=== PATIENT | male | born 1945 | race Caucasian/White ===

== ENCOUNTER 2017-02-20 07:25 | Emergency (ER) | payer MEDICAID, MEDICARE, OTHER ==
[~2017-02-20] VITALS: Ht 180.3 cm; Wt 90.7 kg
[~2017-02-20 07:25] MED LIST: AMLODIPINE BESYL5 MG ORAL; ASPIRIN81 MG ORAL; ATORVASTATIN CA20 MG ORAL; BACTRIM DS TAB1 EAC1 ORAL; CARVEDILOL12.5 MG ORAL; CIPRO500 MG PO; CIPROFLOXACIN500 M2 ORAL; COLACE100 MG ORAL; COREG12.5 MG ORAL; COZAAR50 MG ORAL; DOCUSATE SODIU100 MG PO; FLEET ENEMA133 ML RC; FLEET ENEMA133 ML RECTAL; FLOMAX0.4 MG ORAL; FUROSEMIDE40 MG ORAL; KEFLEX500 MG ORAL; LANTUS SOL100 UNIT/1 SUBQ; LEVOTHYROXINE50 MCG ORAL; LOSARTAN POTASS25 MG ORAL; LOSARTAN POTASS50 MG ORAL; MAGNESIUM CITR296 M1 PO; NITROFURANTOIN100 M2 ORAL; NORCO 5-325 TA1 EACH ORAL; OMEPRAZOLE20 M3 ORAL; PHENAZOPYRIDIN100 MG ORAL; PLAVIX75 MG ORAL; QUETIAPINE FUMA25 MG PO
[2017-02-20 08:08] VITALS: BP 167/95
--- NOTE | 2017-02-20 08:19 | Emergency Room Report ---
History of Present Illness General Chief Complaint: Abnormal Labs Source: Patient, Friend Present Illness HPI 71-year-old M presents ED for evaluation. Per EMS patient living in a senior care and was found altered this morning. Accu-Chek was very low. Patient was given glucagon without significant improvement. Patient had IV placed and was started on D 10 solution. On arrival patient is more awake and alert and oriented. Patient notes history of diabetes states that he takes long-acting insulin once a day. States he missed his dinner last night. Denies any fevers or chills. Denies any drug use. No other aggravating relieving factors. Denies any other associated symptoms Allergies: Coded Allergies: No Known Allergies (Verified , 08/07/10) Patient History Past Medical History: DM, HTN, CVA/TIA Pertinent Family History: none Social History: Denies: alcohol use, drug use, smoking Immunizations: UTD Reviewed Nursing Documentation: PMH: Agreed, PSxH: Agreed Nursing Documentation-PMH Past Medical History: No History, Except For Hx Hypertension: Yes Hx Pacemaker: No Hx Asthma: No Hx COPD: No Hx Diabetes: Yes Hx Cancer: No Hx Gastrointestinal Problems: Yes Hx Dialysis: No Hx Cerebrovascular Accident: Yes - 2008 Hx Seizures: No Review of Systems All Other Systems: negative except mentioned in HPI Physical Exam Vital Signs Date Time Temp Pulse Resp B/P Pulse Ox O2 Delivery O2 Flow Rate FiO2 02/20/17 07:18 97.9 90 18 181/102 99 Room Air Sp02 EP Interpretation: reviewed, normal General Appearance: no apparent distress, alert, GCS 15, non-toxic, obese Head: normocephalic, atraumatic Eyes: bilateral eye PERRL, bilateral eye normal inspection ENT: hearing grossly normal, normal pharynx, no angioedema, normal voice Neck: full range of motion, supple/symm/no masses Respiratory: chest non-tender, lungs clear, normal breath sounds, speaking full sentences Cardiovascular #1: regular rate, rhythm, no edema Cardiovascular #2: 2+ carotid (R), 2+ carotid (L), 2+ radial (R), 2+ radial (L) , 2+ dorsalis pedis (R), 2+ dorsalis pedis (L) Gastrointestinal: normal bowel sounds, non tender, soft, non-distended, no guarding, no rebound Rectal: deferred Genitourinary: normal inspection, no CVA tenderness Musculoskeletal: back normal, gait/station normal, normal range of motion, non- tender Neurologic: alert, oriented x3, responsive, motor strength/tone normal, sensory intact, speech normal Psychiatric: judgement/insight normal, memory normal, mood/affect normal, no suicidal/homicidal ideation Reflexes: 3+ bicep (R), 3+ bicep (L), 3+ tricep (R), 3+ tricep (L), 3+ knee (R) , 3+ knee (L) Skin: normal color, no rash, warm/dry, well hydrated Lymphatic: no adenopathy Medical Decision Making Diagnostic Impression: Primary Impression: Hypoglycemia Additional Impressions: Altered level of consciousness Renal insufficiency Labs Test 02/20/17 08:10 02/20/17 08:26 White Blood Count 8.1 K/UL (4.8-10.8) Red Blood Count 3.48 M/UL (4.70-6.10) Hemoglobin 11.2 G/DL (14.2-18.0) Hematocrit 36.4 % (42.0-52.0) Mean Corpuscular Volume 105 FL (80-99) Mean Corpuscular Hemoglobin 32.4 PG (27.0-31.0) Mean Corpuscular Hemoglobin Concent 30.9 G/DL (32.0-36.0) Red Cell Distribution Width 13.8 % (11.6-14.8) Platelet Count 125 K/UL (150-450) Mean Platelet Volume 8.3 FL (6.5-10.1) Neutrophils (%) (Auto) % (45.0-75.0) Lymphocytes (%) (Auto) % (20.0-45.0) Monocytes (%) (Auto) % (1.0-10.0) Eosinophils (%) (Auto) % (0.0-3.0) Basophils (%) (Auto) % (0.0-2.0) Sodium Level 140 mEQ/L (135-145) Potassium Level 4.6 mEQ/L (3.4-4.9) Chloride Level 104 mEQ/L (98-107) Carbon Dioxide Level 24 mEQ/L (20-30) Anion Gap 12 (5-15) Blood Urea Nitrogen 41 mg/dL (7-23) Creatinine 2.7 mg/dL (0.7-1.2) Estimat Glomerular Filtration Rate 23.5 mL/min (>60) Glucose Level 203 mg/dL (74-106) Calcium Level 8.3 mg/dL (8.6-10.2) Total Bilirubin 0.4 mg/dL (0.0-1.2) Aspartate Amino Transf (AST/SGOT) 15 U/L (5-40) Alanine Aminotransferase (ALT/SGPT) 10 U/L (3-41) Alkaline Phosphatase 83 U/L (40-129) Total Creatine Kinase 131 U/L (38-174) Creatine Kinase MB 4.1 ng/mL (< 6.7) Creatine Kinase MB Relative Index 3.1 Troponin I < 0.30 ng/mL (<=0.30) Total Protein 7.0 g/dL (6.6-8.7) Albumin 3.5 g/dL (3.5-5.2) Globulin 3.5 g/dL Albumin/Globulin Ratio 1.0 (1.0-2.7) Urine Color Yellow Urine Appearance Clear Urine pH 5 (4.5-8.0) Urine Specific [place] 1.015 (1.005-1.035) Urine Protein 2+ (NEGATIVE) Urine Glucose (UA) Negative (NEGATIVE) Urine Ketones Negative (NEGATIVE) Urine Occult Blood Negative (NEGATIVE) Urine Nitrite Negative (NEGATIVE) Urine Bilirubin Negative (NEGATIVE) Urine Urobilinogen Normal MG/DL (0.0-1.0) Urine Leukocyte Esterase 1+ (NEGATIVE) Urine RBC 0-2 /HPF (0 - 0) Urine WBC 0-2 /HPF (0 - 0) Urine Squamous Epithelial Cells Occasional /LPF Urine Bacteria Few /HPF (NONE) Urine Opiates Screen Negative (NEGATIVE) Urine Barbiturates Screen Negative (NEGATIVE) Phencyclidine (PCP) Screen Negative (NEGATIVE) Urine Amphetamines Screen Negative (NEGATIVE) Urine Benzodiazepines Screen Negative (NEGATIVE) Urine Cocaine Screen Negative (NEGATIVE) Urine Marijuana (THC) Screen Negative (NEGATIVE) EKG Diagnostic Results Rate: normal Rhythm: NSR ST Segments: other - RBBB ASA given to the pt in ED: No Rhythm Strip Diag. Results EP Interpretation: yes Rhythm: NSR, no PVC's, no ectopy Last Vital Signs Date Time Temp Pulse Resp B/P Pulse Ox O2 Delivery O2 Flow Rate FiO2 02/20/17 08:08 97.9 98 23 167/95 94 Room Air Status: improved Disposition: XFER SHT-TRM HOSP Condition: Serious Referrals: [facility],REFERRING (PCP) KING ALFARO M.D. Feb 20, 2017 08:19
[2017-02-20 08:25] LABS: MEAN CORPUSCULAR HEMOGLOBIN 32.4 PG (27.0-31.0); MEAN CORPUSCULAR HGB CONC 30.9 G/DL (32.0-36.0); MEAN CORPUSCULAR VOLUME 105 FL (80-99); MEAN PLATELET VOLUME 8.3 FL (6.5-10.1); PLATELET COUNT 125 K/UL (150-450); RED BLOOD COUNT 3.48 M/UL (4.70-6.10); RED CELL DISTRIBUTION WIDTH 13.8 % (11.6-14.8); WHITE BLOOD COUNT 8.1 K/UL (4.8-10.8)
[2017-02-20 08:35] LABS: APPEARANCE,URINE CLEAR; KETONES,URINE NEGATIVE (NEGATIVE); LEUKOCYTE ESTERASE ,URINE 1+ (NEGATIVE); NITRITE,URINE NEGATIVE (NEGATIVE); PH,URINE 5 (4.5-8.0); PROTEIN,URINE 2+ (NEGATIVE); UROBILINOGEN,URINE NORMAL MG/DL (0.0-1.0)
[2017-02-20 08:42] LABS: BACTERIA,URINE FEW /HPF; RBC,URINE 0-2 /HPF (0 - 0); SQUAMOUS EPITHELIAL CELL,UR OCCASIONAL /LPF (NONE/OCC); WBC,URINE 0-2 /HPF (0 - 0)
[2017-02-20 08:48] LABS: TROPONIN I < 0.30 ng/mL (<=0.30)
[2017-02-20 08:51] LABS: CALCIUM 8.3 mg/dL (8.6-10.2); CREATININE 2.7 mg/dL (0.7-1.2); GLOMERULAR FILTRATION RATE 23.5 mL/min (>60); POTASSIUM 4.6 mEQ/L (3.4-4.9)
[2017-02-20 09:01] LABS: CKMB 4.1 ng/mL (< 6.7)
[2017-02-20 09:28] LABS: BAND NEUTROPHILS % (MANUAL) 0 % (0-8); BASOPHILS % (MANUAL) 0 % (0-2); EOSINOPHILS % (MANUAL) 0 % (0-3); HYPOCHROMASIA 1+; LYMPHOCYTES % (MANUAL) 9 % (20-45); MACROCYTES 1+; NEUTROPHILS % (MANUAL) 89 % (45-75); PLATELET ESTIMATE DECREASED; PLATELET MORPHOLOGY NORMAL; TOTAL CELLS COUNTED 100
[2017-02-20] MEDS ORDERED: LIPITOR80 MG ORAL (09:28)
[2017-02-20] MEDS ORDERED: OMEPRAZOLE20 M3 ORAL (09:31)
[2017-02-20] MEDS ORDERED: MIRTAZAPINE15 M3 ORAL (09:31)
[2017-02-20] MEDS ORDERED: TAMSULOSIN HCL0.4 MG ORAL (09:31)
[2017-02-20] MEDS ORDERED: CARVEDILOL6.25 MG ORAL (09:31)
[2017-02-20 10:11] VITALS: BP 163/86
[2017-02-20] MEDS ORDERED: LANTUS SOL100 UNIT/1 SUBQ (10:13)
[2017-02-20 10:59] VITALS: BP 154/78
== END 2017-02-20 11:00 | disposition short-term general hospital (02) ==
LOC: EDBD 07:25 → EMR 07:45
DX: E16.2 Hypoglycemia, unspecified (principal); R41.82 Altered mental status, unspecified; N28.9 Disorder of kidney and ureter, unspecified; E11.8 Type 2 diabetes mellitus with unspecified complications; Z79.4 Long term (current) use of insulin; I10 Essential (primary) hypertension; Z86.73 Personal history of transient ischemic attack (TIA), and cerebral infarction without residual deficits; I45.10 Unspecified right bundle-branch block
CPT/HCPCS: 36415; 80053; 80300; 81003; 82550; 82553; 82962; 84484; 85007; 85025; 87081; 93005

== ENCOUNTER 2017-02-21 11:53 | Emergency (ER) | payer MEDICAID, MEDICARE, OTHER ==
[~2017-02-21] VITALS: Ht 182.9 cm; Wt 99.8 kg
[~2017-02-21 11:53] MED LIST changes: +CARVEDILOL6.25 MG ORAL; +LIPITOR80 MG ORAL; +MIRTAZAPINE15 M3 ORAL; +TAMSULOSIN HCL0.4 MG ORAL
[2017-02-21 12:00] VITALS: BP 154/86
--- NOTE | 2017-02-21 12:57 | Emergency Room Report ---
History of Present Illness General Chief Complaint: Abdominal Pain Source: Patient, Medical Record Present Illness HPI 71-year-old male presents ED complaining of shortness of breath and abdominal pain. States symptoms started this morning. Patient notes pain to the lower abdomen, 7/10, sharp, nonradiating. Denies fevers or chills. Denies nausea or vomiting. Patient complains of shortness of breath and increased leg swelling. History of CHF. Denies chest pain. Denies cough. Patient was here yesterday for hypoglycemia and was transferred to another hospital. Patient states he was discharged this morning to home. States felt fine when he was discharged. No other aggravating or relieving factors. Denies any other associated symptom Allergies: Coded Allergies: No Known Allergies (Verified , 08/07/10) Patient History Past Medical History: DM, HTN, CVA/TIA Past Surgical History: none Pertinent Family History: none Social History: Denies: alcohol use, drug use, smoking Immunizations: UTD Reviewed Nursing Documentation: PMH: Agreed, PSxH: Agreed Nursing Documentation-PMH Past Medical History: No History, Except For Hx Hypertension: Yes Hx Pacemaker: No Hx Asthma: No Hx COPD: No Hx Diabetes: Yes Hx Cancer: No Hx Gastrointestinal Problems: Yes Hx Dialysis: No Hx Cerebrovascular Accident: Yes - 2008 Hx Seizures: No Review of Systems All Other Systems: negative except mentioned in HPI Physical Exam Vital Signs Date Time Temp Pulse Resp B/P Pulse Ox O2 Delivery O2 Flow Rate FiO2 02/21/17 11:40 98.8 88 20 152/87 96 Room Air Sp02 EP Interpretation: reviewed, normal General Appearance: mild distress, obese Head: normocephalic ENT: normal ENT inspection Neck: normal inspection Respiratory: chest non-tender, lungs clear, normal breath sounds, speaking full sentences Cardiovascular #1: regular rate, rhythm, no edema Gastrointestinal: tenderness Rectal: deferred Genitourinary: no CVA tenderness Musculoskeletal: swelling - 2+ pitting edema b/l LE Neurologic: alert, oriented x3, responsive, motor strength/tone normal, sensory intact, speech normal Psychiatric: normal inspection Skin: normal inspection Lymphatic: normal inspection Medical Decision Making Diagnostic Impression: Primary Impression: CHF exacerbation Qualified Codes: I50.9 - Heart failure, unspecified Additional Impressions: Abdominal pain Qualified Codes: R10.9 - Unspecified abdominal pain Renal insufficiency ER Course Hospital Course 71-year-old male presents ED complaining of shortness of breath, leg swelling. Abdominal pain Differential diagnoses include: ME/unstable angina, contusion, muscle strain, PTX, rib fracture Clinical course Patient placed on stretcher. on shelter monitor. After initial history and physical I ordered labs, EKG, chest x-ray, CT abdomen labs reviewed- no leukocytosis, hemoglobin/hematocrit stable, BUN/creatinine elevated, troponins negative, B[place] greater [place] [address] Chest x-ray- pulmonary congestion, cardiac megaly, sternotomy wires noted EKG-no acute ischemic changes, right bundle branch block interpreted by me CT abdomen shows diverticulosis, no diverticulitis, ascites Lasix given. On reassessment symptoms have improved Patient was here yesterday and seen by myself for hypoglycemia after taking Lantus. Patient was transferred to urgent care for observation and subsequently discharged this morning Because of insurance patient will be transferred to a contracted hospital I. I feel this is a highly complex case requiring extensive working including EKG/Rhythm strip, Xray/CT/US, Blood/urine lab work, repeat exams while in ED, and administration of strong opiates/narcotics for pain control, admission to hospital or close patient follow up. Diagnosis - CHF exacerbation, abdominal pain, renal insufficiency Transferred in serious condition Labs Test 02/21/17 12:25 02/21/17 14:30 White Blood Count 6.2 K/UL (4.8-10.8) Red Blood Count 3.41 M/UL (4.70-6.10) Hemoglobin 10.7 G/DL (14.2-18.0) Hematocrit 35.6 % (42.0-52.0) Mean Corpuscular Volume 104 FL (80-99) Mean Corpuscular Hemoglobin 31.2 PG (27.0-31.0) Mean Corpuscular Hemoglobin Concent 30.0 G/DL (32.0-36.0) Red Cell Distribution Width 14.1 % (11.6-14.8) Platelet Count 130 K/UL (150-450) Mean Platelet Volume 8.9 FL (6.5-10.1) Neutrophils (%) (Auto) 65.2 % (45.0-75.0) Lymphocytes (%) (Auto) 20.4 % (20.0-45.0) Monocytes (%) (Auto) 10.3 % (1.0-10.0) Eosinophils (%) (Auto) 2.9 % (0.0-3.0) Basophils (%) (Auto) 1.1 % (0.0-2.0) Sodium Level 139 mEQ/L (135-145) Potassium Level 5.0 mEQ/L (3.4-4.9) Chloride Level 104 mEQ/L (98-107) Carbon Dioxide Level 21 mEQ/L (20-30) Anion Gap 14 (5-15) Blood Urea Nitrogen 47 mg/dL (7-23) Creatinine 2.7 mg/dL (0.7-1.2) Estimat Glomerular Filtration Rate 23.5 mL/min (>60) Glucose Level 167 mg/dL (74-106) Calcium Level 8.4 mg/dL (8.6-10.2) Total Bilirubin 0.5 mg/dL (0.0-1.2) Aspartate Amino Transf (AST/SGOT) 21 U/L (5-40) Alanine Aminotransferase (ALT/SGPT) 14 U/L (3-41) Alkaline Phosphatase 80 U/L (40-129) Total Creatine Kinase 185 U/L (38-174) Creatine Kinase MB 3.1 ng/mL (< 6.7) Creatine Kinase MB Relative Index 1.6 Troponin I < 0.30 ng/mL (<=0.30) Pro-B-Type Natriuretic Peptide 90067 pg/mL (0-125) Total Protein 6.5 g/dL (6.6-8.7) Albumin 3.5 g/dL (3.5-5.2) Globulin 3.0 g/dL Albumin/Globulin Ratio 1.1 (1.0-2.7) Lipase 15 U/L (< 60) Urine Color Yellow Urine Appearance Clear Urine pH 5 (4.5-8.0) Urine Specific [place] 1.020 (1.005-1.035) Urine Protein 2+ (NEGATIVE) Urine Glucose (UA) Negative (NEGATIVE) Urine Ketones Negative (NEGATIVE) Urine Occult Blood 1+ (NEGATIVE) Urine Nitrite Negative (NEGATIVE) Urine Bilirubin Negative (NEGATIVE) Urine Urobilinogen Normal MG/DL (0.0-1.0) Urine Leukocyte Esterase 3+ (NEGATIVE) Urine RBC 2-4 /HPF (0 - 0) Urine WBC 5-10 /HPF (0 - 0) Urine Squamous Epithelial Cells Occasional /LPF Urine Transitional Epithelial Cells Few /LPF (NONE) Urine Bacteria None /HPF (NONE) EKG Diagnostic Results Rate: normal Rhythm: other - 1st degree av block ST Segments: no acute changes ASA given to the pt in ED: No Rhythm Strip Diag. Results EP Interpretation: yes Rhythm: NSR, no ectopy, other - PVCs Chest X-Ray Diagnostic Results Chest X-Ray Diagnostic Results : Chest X-Ray Ordered: Yes # of Views/Limited/Complete: 1 View Indication: Shortness of Breath EP Interpretation: Yes Interpretation: no pneumothorax, other - cardiomegaly. pulmonary congestion Impression: Other - acute chf Interpreting ER Provider: electronically signed by Minor Sun mD CT/MRI/US Diagnostic Results CT/MRI/US Diagnostic Results : Imaging Test Ordered: CT abdomen/pelvis Impression Mild ascites. Bilateral pleural effusion. Subcutaneous edema. Diverticulosis , no diverticulitis Last Vital Signs Date Time Temp Pulse Resp B/P Pulse Ox O2 Delivery O2 Flow Rate FiO2 02/21/17 12:00 22 154/86 98 Room Air 02/21/17 11:40 98.8 88 Status: improved Disposition: XFER SHT-TRM HOSP Condition: Serious Referrals: NOT CHOSEN [facility]/,REFERRING (PCP) MINOR SUN M.D. Feb 21, 2017 12:56
[2017-02-21 13:06] LABS: ALBUMIN/GLOBULIN RATIO 1.1 (1.0-2.7); CALCIUM 8.4 mg/dL (8.6-10.2); CREATININE 2.7 mg/dL (0.7-1.2); GLOMERULAR FILTRATION RATE 23.5 mL/min (>60); TOTAL PROTEIN 6.5 g/dL (6.6-8.7); TROPONIN I < 0.30 ng/mL (<=0.30)
[2017-02-21 13:11] LABS: BASOPHILS % (AUTO) 1.1 % (0.0-2.0); EOSINOPHILS % (AUTO) 2.9 % (0.0-3.0); LYMPHOCYTES % (AUTO) 20.4 % (20.0-45.0); MEAN CORPUSCULAR HEMOGLOBIN 31.2 PG (27.0-31.0); MEAN CORPUSCULAR VOLUME 104 FL (80-99); MEAN PLATELET VOLUME 8.9 FL (6.5-10.1); MONOCYTES % (AUTO) 10.3 % (1.0-10.0); NEUTROPHILS % (AUTO) 65.2 % (45.0-75.0); PLATELET COUNT 130 K/UL (150-450); RED BLOOD COUNT 3.41 M/UL (4.70-6.10); RED CELL DISTRIBUTION WIDTH 14.1 % (11.6-14.8); WHITE BLOOD COUNT 6.2 K/UL (4.8-10.8)
[2017-02-21 13:17] LABS: CKMB 3.1 ng/mL (< 6.7)
[2017-02-21 14:00] VITALS: BP 134/88
[2017-02-21 14:53] LABS: APPEARANCE,URINE CLEAR; KETONES,URINE NEGATIVE (NEGATIVE); LEUKOCYTE ESTERASE ,URINE 3+ (NEGATIVE); NITRITE,URINE NEGATIVE (NEGATIVE); PH,URINE 5 (4.5-8.0); PROTEIN,URINE 2+ (NEGATIVE); UROBILINOGEN,URINE NORMAL MG/DL (0.0-1.0)
[2017-02-21 15:21] LABS: SQUAMOUS EPITHELIAL CELL,UR OCCASIONAL /LPF (NONE/OCC); TRANSITIONAL EPI CELLS,URINE FEW /LPF
[2017-02-21 16:00] VITALS: BP 127/80
[2017-02-21 17:38] VITALS: BP 131/83
--- NOTE | 2017-02-22 09:48 | Diagnostic Imaging Report ---
Indications: Shortness of breath Technique: AP chest Findings: Comparison: None Suboptimal image quality limits evaluation. Inspiratory effort has decreased. Size of the cardiac silhouette has apparently increased. Pulmonary vascular redistribution, bilateral interstitial prominence suggested. No pleural abnormality evident. Sternal wires, aortic arch calcification and mild elongation again noted. IMPRESSION: Limited exam demonstrating findings suggestive of development of mild congestive heart failure. Some or all of these changes may be technically related, however. Upright PA and lateral chest radiographs with better inspiratory effort and optimal technique recommended for more complete evaluation. Stable chronic changes as described
--- NOTE | 2017-02-23 10:17 | Diagnostic Imaging Report ---
Indications: Abdominal pain Technique: Continuous helical CT imaging of the orbits was performed with automatic exposure control on a Siemens sensation [address] scanner. Axial and coronal images were reconstructed at 3 mm slice thickness. IV contrast administered due to elevated creatinine level. No oral contrast administered per requesting physician's order, despite no contraindications listed CTDI volume(s): 19 mGy Total DLP: 1104 mGy-cm Findings: Comparison: 03/24/2013 Lack of oral and IV contrast limits evaluation. Moderate fecal distention of rectum. Remainder of tract nondilated throughout. Left colonic diverticula. Mild stranding/fluid now adjacent to the descending/sigmoid colon junction. Mild ascites and mesenteric edema have developed. No obvious mural thickening, extraluminal gas or loculated fluid collections. Right kidney now diffusely atrophic. 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 Remainder visualized abdominopelvic anatomy demonstrates no other obvious acute abnormality. Small left pleural effusion has developed. Subsegmental atelectasis has developed in both lung bases. Diffuse body wall edema has developed. Severe degenerative changes again noted throughout lumbar, lower thoracic spine. IMPRESSION: Development of ascites, mesenteric and body wall edema, left pleural effusion, nonspecific, may represent anasarca Left colonic diverticulosis. Adjacent fluid and stranding likely represent ascites and mesenteric edema. Mild acute diverticulitis not entirely excludable. Interval atrophy of right kidney likely due to chronic renal artery stenosis Other stable chronic changes as described No other evidence of acute abdominopelvic disease, with limitation as described. Subtle but potentially significant abnormalities may be missed. Repeat CT scan with full oral and IV contrast preparation recommended for more complete evaluation, as clinically indicated This correlates with Dr. Pro's preliminary report.
== END 2017-02-21 17:38 | disposition short-term general hospital (02) ==
LOC: EDBD 11:53 → EMR 12:44
DX: I50.9 Heart failure, unspecified (principal); R10.9 Unspecified abdominal pain; N28.9 Disorder of kidney and ureter, unspecified; K57.30 Diverticulosis of large intestine without perforation or abscess without bleeding; I10 Essential (primary) hypertension; R18.8 Other ascites; E11.9 Type 2 diabetes mellitus without complications; J90 Pleural effusion, not elsewhere classified; Z86.73 Personal history of transient ischemic attack (TIA), and cerebral infarction without residual deficits
CPT/HCPCS: 36415; 71010; 74176; 80053; 81003; 82550; 82553; 83690; 83880; 84484; 85025; 93005; 96374; 99285; J1940

== ENCOUNTER 2017-03-23 20:03 | Inpatient (IN) | payer OTHER ==
[~2017-03-23] VITALS: Ht 172.7 cm; Wt 115.2 kg
--- NOTE | 2017-03-23 20:00 | Emergency Room Report ---
History of Present Illness General Source: Patient, EMS Present Illness HPI Patient 71-year-old male brought in by EMS after increased difficulty breathing. Patient had the acute onset of difficulty breathing was much associated chest tightness. Patient had prior history of cardiac disease. History is limited by patient's difficulty breathing and acuity. Patient was given nitroglycerin as well as aspirin by EMS. He was started on CPAP. Allergies: Coded Allergies: No Known Allergies (Verified , 08/07/10) Patient History Past Medical History: see triage record Reviewed Nursing Documentation: PMH: Agreed, PSxH: Agreed Review of Systems All Other Systems: negative except mentioned in HPI Physical Exam Sp02 EP Interpretation: reviewed, normal General Appearance: severe distress, obese Head: atraumatic ENT: normal ENT inspection, hearing grossly normal, normal voice Neck: normal inspection, full range of motion, supple, no bony tend Respiratory: normal inspection, no retraction, decreased breath sounds, wheezing Cardiovascular #1: regular rate, rhythm, edema Gastrointestinal: normal inspection, normal bowel sounds, non tender, soft, no guarding, no hernia Genitourinary: no CVA tenderness Musculoskeletal: normal inspection, back normal, normal range of motion Neurologic: normal inspection, alert Psychiatric: normal inspection, judgement/insight normal, mood/affect normal Skin: other - pedal edema Medical Decision Making Diagnostic Impression: Primary Impression: CHF exacerbation Additional Impressions: Chronic renal disease Hypoxia ER Course Presented for shortness of breath. Differential included but was not limited to anemia, pneumonia, pneumothorax, myocardial infarction, pericardial effusion , congestive heart failure, acidosis. Because of complexity of patient's case laboratory testing and imaging studies were ordered. I EKG interpreted by me showed atrial fibrillation with a rate of [address] or T wave changes repeat EKG was unchanged. Patient given IV Lasix as well as BiPAP. Laboratory studies are notable for elevated BNP as well as negative troponin. The patient was noted to have some elevation of his BUN/ creatinineA chest x-ray one view interpreted by me showed cardiomegaly with vascular congestion. Dr. Klaus Marquez was contacted for Dr. Wing for inpatient management Labs Test 03/23/17 20:00 White Blood Count 7.9 K/UL (4.8-10.8) Red Blood Count 3.26 M/UL (4.70-6.10) Hemoglobin 10.8 G/DL (14.2-18.0) Hematocrit 34.1 % (42.0-52.0) Mean Corpuscular Volume 105 FL (80-99) Mean Corpuscular Hemoglobin 33.2 PG (27.0-31.0) Mean Corpuscular Hemoglobin Concent 31.7 G/DL (32.0-36.0) Red Cell Distribution Width 15.7 % (11.6-14.8) Platelet Count 133 K/UL (150-450) Mean Platelet Volume 7.7 FL (6.5-10.1) Neutrophils (%) (Auto) 82.7 % (45.0-75.0) Lymphocytes (%) (Auto) 9.3 % (20.0-45.0) Monocytes (%) (Auto) 5.5 % (1.0-10.0) Eosinophils (%) (Auto) 1.7 % (0.0-3.0) Basophils (%) (Auto) 0.7 % (0.0-2.0) Prothrombin Time 11.3 SEC (9.30-11.50) Prothromb Time International Ratio 1.1 (0.9-1.1) Activated Partial Thromboplast Time 27 SEC (23-33) D-Dimer 8948 ng/mL (<500) Sodium Level 139 mEQ/L (135-145) Potassium Level 5.8 mEQ/L (3.4-4.9) Chloride Level 104 mEQ/L (98-107) Carbon Dioxide Level 19 mEQ/L (20-30) Anion Gap 16 (5-15) Blood Urea Nitrogen 50 mg/dL (7-23) Creatinine 2.5 mg/dL (0.7-1.2) Estimat Glomerular Filtration Rate 25.7 mL/min (>60) Glucose Level 168 mg/dL (74-106) Calcium Level 8.2 mg/dL (8.6-10.2) Total Bilirubin 0.9 mg/dL (0.0-1.2) Aspartate Amino Transf (AST/SGOT) 26 U/L (5-40) Alanine Aminotransferase (ALT/SGPT) 11 U/L (3-41) Alkaline Phosphatase 99 U/L (40-129) Troponin I < 0.30 ng/mL (<=0.30) Pro-B-Type Natriuretic Peptide 68567 pg/mL (0-125) Total Protein 7.2 g/dL (6.6-8.7) Albumin 3.8 g/dL (3.5-5.2) Globulin 3.4 g/dL Albumin/Globulin Ratio 1.1 (1.0-2.7) EKG Diagnostic Results Rate: normal - 99 Rhythm: NSR ST Segments: no acute changes ASA given to the pt in ED: No - by EMS Rhythm Strip Diag. Results EP Interpretation: yes Rhythm: NSR, no PVC's, no ectopy Chest X-Ray Diagnostic Results Chest X-Ray Diagnostic Results : Chest X-Ray Ordered: Yes # of Views/Limited/Complete: 1 View Indication: Chest Pain EP Interpretation: Yes Interpretation: no consolidation, no effusion, no pneumothorax, other - cardiomegaly Status: improved Disposition: ADMITTED INPATIENT Condition: Avery Leach Mar 23, 2017 20:00
[2017-03-23] MEDS ORDERED: Enalaprilat 2.5mg/2ml Inj IV ONE (20:15)
[2017-03-23 20:33] LABS: BASOPHILS % (AUTO) 0.7 % (0.0-2.0); EOSINOPHILS % (AUTO) 1.7 % (0.0-3.0); LYMPHOCYTES % (AUTO) 9.3 % (20.0-45.0); MEAN CORPUSCULAR HEMOGLOBIN 33.2 PG (27.0-31.0); MEAN CORPUSCULAR HGB CONC 31.7 G/DL (32.0-36.0); MEAN CORPUSCULAR VOLUME 105 FL (80-99); MEAN PLATELET VOLUME 7.7 FL (6.5-10.1); MONOCYTES % (AUTO) 5.5 % (1.0-10.0); NEUTROPHILS % (AUTO) 82.7 % (45.0-75.0); PLATELET COUNT 133 K/UL (150-450); RED BLOOD COUNT 3.26 M/UL (4.70-6.10); RED CELL DISTRIBUTION WIDTH 15.7 % (11.6-14.8); WHITE BLOOD COUNT 7.9 K/UL (4.8-10.8)
[2017-03-23 20:41] LABS: INR 1.1 (0.9-1.1); PROTHROMBIN TIME 11.3 SEC (9.30-11.50)
[2017-03-23 20:45] LABS: ALBUMIN/GLOBULIN RATIO 1.1 (1.0-2.7); CALCIUM 8.2 mg/dL (8.6-10.2); CREATININE 2.5 mg/dL (0.7-1.2); GLOMERULAR FILTRATION RATE 25.7 mL/min (>60); POTASSIUM 5.8 mEQ/L (3.4-4.9); TOTAL PROTEIN 7.2 g/dL (6.6-8.7); TROPONIN I < 0.30 ng/mL (<=0.30)
[2017-03-23 20:53] VITALS: BP 104/71
[2017-03-23] MEDS ORDERED: Aspirin Baby 81mg ORAL ONE (22:30)
[2017-03-23] MEDS ORDERED: Norco 5mg/325mg tab ORAL PRN (23:15)
[2017-03-23] MEDS ORDERED: Simethicone 80mg tab ORAL PRN (23:15)
[2017-03-23 23:30] VITALS: BP 129/61
[2017-03-23 23:41] VITALS: BP 114/61
[2017-03-24] VITALS (8 sets, daily range): BP systolic 113–131; BP diastolic 55–93
[2017-03-24 04:54] LABS: BASOPHILS % (AUTO) 0.8 % (0.0-2.0); EOSINOPHILS % (AUTO) 4.9 % (0.0-3.0); MEAN CORPUSCULAR HEMOGLOBIN 33.2 PG (27.0-31.0); MEAN CORPUSCULAR HGB CONC 31.4 G/DL (32.0-36.0); MEAN CORPUSCULAR VOLUME 106 FL (80-99); MEAN PLATELET VOLUME 9.6 FL (6.5-10.1); MONOCYTES % (AUTO) 6.3 % (1.0-10.0); NEUTROPHILS % (AUTO) 75.9 % (45.0-75.0); PLATELET COUNT 137 K/UL (150-450); RED BLOOD COUNT 3.01 M/UL (4.70-6.10); RED CELL DISTRIBUTION WIDTH 15.3 % (11.6-14.8); WHITE BLOOD COUNT 6.2 K/UL (4.8-10.8)
[2017-03-24 05:10] LABS: APPEARANCE,URINE SLIGHTLY CLOUDY; KETONES,URINE 1+ (NEGATIVE); NITRITE,URINE NEGATIVE (NEGATIVE); PH,URINE 5 (4.5-8.0); PROTEIN,URINE 2+ (NEGATIVE); UROBILINOGEN,URINE 1 MG/DL (0.0-1.0)
[2017-03-24 05:13] LABS: CALCIUM 8.1 mg/dL (8.6-10.2); CREATININE 2.5 mg/dL (0.7-1.2); GLOMERULAR FILTRATION RATE 25.7 mL/min (>60); POTASSIUM 4.5 mEQ/L (3.4-4.9); TOTAL PROTEIN 6.6 g/dL (6.6-8.7); TROPONIN I < 0.30 ng/mL (<=0.30)
[2017-03-24 05:18] LABS: LEUKOCYTE ESTERASE ,URINE 1+ (NEGATIVE)
[2017-03-24 05:21] LABS: AMORPHOUS SEDIMENT,UR MANY /LPF; BACTERIA,URINE FEW /HPF; RBC,URINE 40-60 /HPF (0 - 0); WBC,URINE 0-2 /HPF (0 - 0)
[2017-03-24] MEDS: NovoLOG Insulin Flexpen SUBQ SCH ×4 (06:30→21:23)
[2017-03-24] MEDS: HydrALAZINE 25mg tab ORAL SCH ×4 (10:43→21:12)
[2017-03-24] MEDS: Docusate 100mg cap ORAL SCH ×2 (10:44→17:59)
[2017-03-24] MEDS: Aspirin Baby 81mg ORAL SCH (10:44)
[2017-03-24] MEDS: Carvedilol 6.25mg Tab ORAL SCH ×2 (10:48→21:13)
--- NOTE | 2017-03-24 13:09 | History & Physical ---
History and Physical History & Physicial Patient: SUZAN STANTON DATE OF ADMISSION: 03/24/2016 HISTORY OF PRESENT ILLNESS: The patient is a pleasant 71-year-old man, who comes to the hospital through the emergency department because of SOB. He was found to have CHF and admission was arranged. He was on BiPAP overnight but is better today on n/c. PAST MEDICAL HISTORY: Diabetes, hypertension, and hyperlipidemia. He has CHF, hyperlipidemia and DM, CKD, anemia and hypothyroidism. ALLERGIES: None. MEDICATIONS: reviewed REVIEW OF SYSTEMS: Otherwise unremarkable. PHYSICAL EXAMINATION: GENERAL: The patient is overweight, alert, and responsive. VITAL SIGNS: Stable. There is no fever. SKIN: Warm and dry. HEENT: Head is normocephalic. NECK: No jugular venous distention. CHEST: rales CARDIAC: Regular. ABDOMEN: Soft and nontender. There is no liver or spleen enlargement. No mass. EXTREMITIES: No clubbing, cyanosis, ++ edema. LABORATORY STUDIES: Show no acute findings on abdominal x-rays. The white count is normal at 6800, and hemoglobin 12.4. Potassium is 5, creatinine 2.7, and BUN 47. Urinalysis is negative. IMPRESSIONS: 1. CHF 2. COPD. 3. CKD. 4. Possible CAD 5. Diabetes with chronic diabetic nephropathy. 6. Hypertension, poorly controlled. 7. Hyperlipidemia. 8. Hematuria on UA PLAN: The patient will be given Lasix. Renal and cardiology were called. Venkat Wing M.D. VENKAT WING Mar 24, 2017 13:09
--- NOTE | 2017-03-24 16:12 | Diagnostic Imaging Report ---
Indication: SOB Technique: One view of the chest Comparison: 02/21/2017 Findings: The heart is borderline enlarged. There is evidence of prior CABG. Lungs and pleural spaces are clear previously demonstrated interstitial congestion is no longer evident. Impression: Right cardiomegaly No definite acute process
[2017-03-24] MEDS ORDERED: Tamsulosin 0.4mg cap ORAL SCH (21:00)
[2017-03-24] MEDS: Atorvastatin 20mg tab ORAL SCH (21:13)
[2017-03-24] MEDS: Heparin 5000 units/ml inj SUBQ SCH (21:17)
--- NOTE | 2017-03-24 21:30 | Consultation ---
DATE OF CONSULTATION: 03/24/2017 CARDIOLOGY CONSULTATION REQUESTING PHYSICIAN: Mitchel Wing M.D. REASON FOR CONSULTATION: Congestive heart failure exacerbation in the setting of ischemic and hypertensive cardiomyopathy. HISTORY OF PRESENT ILLNESS: This 71-year-old male with a history of hypertensive cardiomyopathy and congestive heart failure presented to the emergency room with shortness of breath, chest tightness and leg swelling for the last night. He was given nitroglycerin and aspirin by the paramedics. On arrival to the emergency room, he required BiPAP support. He ultimately improved, but continues to be short of breath at rest. He has been compliant with medications, although compliance with dietary restrictions are not known. I have been asked to assist with further cardiovascular care. The patient is a poor historian. Records are reviewed with 20 minutes of time spent. PAST MEDICAL HISTORY: Hypertensive heart disease, history of malignant range blood pressure, coronary atherosclerosis, chronic kidney disease, insulin-requiring diabetes mellitus, diabetic nephropathy, diabetic neuropathy, diabetic angiopathy, paroxysmal atrial fibrillation, history of congestive heart failure, hyperlipidemia and hypothyroidism. MEDICATIONS: Prior to admission, reviewed and reconciled. ALLERGIES: None. SOCIAL HISTORY: Prior smoker. No history of alcohol or substance abuse. REVIEW OF SYSTEMS: Cannot be reliably obtained from the patient. Records review x20 minutes with pertinent data outlined above. PHYSICAL EXAMINATION: GENERAL: He is awake, alert, moderately obese, but frequently falls asleep. Presently off BiPAP. VITAL SIGNS: Blood pressure 126/66, pulse 80, and respiratory rate 22. NECK: Jugular venous pressure elevated. No accessory muscle use. LUNGS: Diminished breath sounds. Scattered rales. CARDIAC: Regular rhythm and rate. Normal S1 and S2 with fourth heart sound and a 1/6 apical systolic murmur. ABDOMEN: Soft and nontender. EXTREMITIES: There is 1+ dependent pretibial edema. NEUROLOGIC: Throughout symmetric strength. No asterixis. LABORATORY AND DIAGNOSTIC DATA: EKG reveals atrial fibrillation with nonspecific ST-T wave changes. IMPRESSION: 1. Acute on chronic systolic and diastolic congestive heart failure. 2. Paroxysmal atrial fibrillation with increased ventricular response. 3. Hypertensive heart disease. 4. Ischemic cardiomyopathy. 5. Insulin-requiring diabetes with multiple complications including chronic kidney disease. 6. Obesity with history of chronic obstructive pulmonary disease. RECOMMENDATIONS: Cardiac monitoring. Ongoing diuresis. Consider full anticoagulation for cardioembolic prophylaxis once bleeding risk is addressed. Optimize anti-failure regimen. Avoid angiotensin-converting enzyme inhibitors and angiotensin receptor blockers due to progressive renal impairment. Further recommendations will follow. Echocardiogram for assessment of left ventricular function. Antiplatelet therapy. Serial troponin levels. Wellington Peter M.D. DR: TESSY JOB#: [id number] CC:
--- NOTE | 2017-03-24 23:15 | Consultation ---
DATE OF CONSULTATION: 03/24/2017 REASON FOR CONSULTATION: Elevated BUN, creatinine, and potassium. HISTORY OF PRESENT ILLNESS: The patient is a resident of an [facility] and was a poor historian. He presented with decompensated congestive heart failure and COPD and was placed on BiPAP in the emergency room. I was called, he had high potassium, BUN, creatinine, and CHF and additional Lasix was ordered. The patient is a poor historian, but per transfer record, he has a history of unspecified heart failure, acute pulmonary edema, atrioventricular block first degree, muscle weakness, difficulty walking, diverticulosis, essential hypertension, type 2 diabetes, benign prostatic hypertrophy, gastroesophageal reflux, hypothyroidism, hyperlipidemia, and sequelae of unspecified cerebrovascular disease. HABITS: He is a smoker most of his life, apparently quit recently. He denies alcohol or drugs. MEDICATIONS: Prior to admission medications as follows: Aspirin 81 mg daily, atorvastatin 20 mg daily, Carvedilol 6.25 mg b.i.d., DSS 100 mg b.i.d., Dulcolax suppository p.r.n., folic acid 1 mg daily, hydralazine 25 mg four times a day, Lantus 10 units at bedtime, sliding-scale lispro, isosorbide 10 mg t.i.d., levothyroxine 0.1 mg daily, magnesium citrate p.r.n., mirtazapine 15 mg two tablets at bedtime, omeprazole 20 mg daily, Plavix 75 mg daily, Seroquel 25 mg daily, Senna 8.6 mg at bedtime, simethicone 80 mg every eight hours as needed, and tamsulosin 0.4 mg daily. SYSTEM REVIEW: HEAD, EYES, EARS, NOSE, AND THROAT: He states his vision and hearing are good. ENDOCRINE: History of obesity, diabetes, and hypothyroidism. PULMONARY: History of shortness of breath and smoking. He had no known TB. CARDIAC: History of coronary disease. No complaints of chest pain at this time. GASTROINTESTINAL: Denies nausea, vomiting, or abdominal pain. GENITOURINARY: He has BPH. He is on medications as per the above. He has a Ramirez catheter now. NEUROLOGIC: History of prior CVA. He cannot describe the deficit. MUSCULOSKELETAL: History of generalized weakness and difficulty walking. PHYSICAL EXAMINATION: GENERAL: The patient is a chronically ill-appearing man, lying in bed. VITAL SIGNS: Temperature is 97.7 degrees, pulse 80, respirations 22, blood pressure 126/66, and pulse oximetry is 100 on cannula at this time. HEAD EYES, EARS, NOSE, AND THROAT: Oral mucosa is slightly dry. Sclerae are nonicteric. Ocular motions intact in all directions. NECK: No adenopathy or thyroid enlargement. LUNGS: Clear. Distant breath sounds. HEART: Rhythm is regular. No murmur. ABDOMEN: Obese. Soft. No organomegaly. EXTREMITIES: Trace edema. NEUROLOGIC: He is alert and responsive, but sleepy. Ocular motions intact in all directions. Smile is symmetric. Tongue is midline. He moves all extremities. He has generalized weakness. PERTINENT LABS: In the emergency room, potassium 5.8, BUN 15, and creatinine 2.5. Repeat after Lasix. Potassium is 4.5, BUN 52, and creatinine 2.5. His BNP is 54 and 108. Troponin x2 less than 0.30. Albumin 3.3. Urinalysis showed 2+ protein, 0 to 2 white cells, and 40 to 60 red cells per high-power field. INR 1.1. PTT is 27. D-dimer is 89 and 48. White count is 6.2 and hemoglobin 10. Chest x-ray is consistent with congestive heart failure, cardiomegaly, and prior CABG. IMPRESSION: 1. Congestive heart failure, acute on chronic. 2. Elevated BUN and creatinine likely chronic kidney disease, stage 3 or possibly stage 4. 3. Likely diabetic nephropathy. 4. History of hypertension. 5. History of arrhythmias. 6. Morbid obesity and likely sleep apnea. 7. Chronic obstructive pulmonary disease. 8. Diabetes. PLAN: The patient be diuresed. We will watch him closely. As far as his cardiac pulmonary renal disease, I tried to keep electrolytes stable. The patient is at high risk. Case was discussed with . . Klaus Marquez M.D. DR: MARIO JOB#: [id number] CC:
[2017-03-25] VITALS: BP 125/70
[2017-03-25 04:00] VITALS: BP 110/53
[2017-03-25 05:41] LABS: BASOPHILS % (AUTO) 0.9 % (0.0-2.0); EOSINOPHILS % (AUTO) 9.3 % (0.0-3.0); LYMPHOCYTES % (AUTO) 17.4 % (20.0-45.0); MEAN CORPUSCULAR HEMOGLOBIN 32.7 PG (27.0-31.0); MEAN CORPUSCULAR VOLUME 105 FL (80-99); MEAN PLATELET VOLUME 8.5 FL (6.5-10.1); NEUTROPHILS % (AUTO) 64.5 % (45.0-75.0); PLATELET COUNT 116 K/UL (150-450); RED BLOOD COUNT 3.04 M/UL (4.70-6.10); RED CELL DISTRIBUTION WIDTH 15.3 % (11.6-14.8); WHITE BLOOD COUNT 5.6 K/UL (4.8-10.8)
[2017-03-25] MEDS: NovoLOG Insulin Flexpen SUBQ SCH ×4 (06:08→21:01)
[2017-03-25 06:25] LABS: ALBUMIN/GLOBULIN RATIO 0.8 (1.0-2.7); CALCIUM 7.9 mg/dL (8.6-10.2); CREATININE 2.6 mg/dL (0.7-1.2); GLOMERULAR FILTRATION RATE 24.5 mL/min (>60); POTASSIUM 4.1 mEQ/L (3.4-4.9); TOTAL PROTEIN 6.2 g/dL (6.6-8.7)
[2017-03-25 06:31] LABS: THYROID STIMULATING HORMONE 6.44 uIU/mL (0.300-4.500)
--- NOTE | 2017-03-25 07:31 | Urology Progress Note ---
Assessment/Plan Assessment/Plan hematuria, improving urinary retention BPH probable neurogenic bladder CRI proteinuria renal atrophy renal calcifications hernandez hand irrigated, minimal clots hand irrigate PRN hold plavix flomax proscar cysto later Subjective Allergies: Coded Allergies: No Known Allergies (Verified , 08/07/10) Subjective feels fair Objective Last 24 Hour Vital Signs Date Time Temp Pulse Resp B/P Pulse Ox O2 Delivery O2 Flow Rate FiO2 03/25/17 06:38 Nasal Cannula 2.0 28 03/25/17 06:38 78 16 Nasal Cannula 2.0 03/25/17 06:38 96 Nasal Cannula 2.0 28 03/25/17 04:00 72 03/25/17 04:00 97.5 65 19 110/53 98 Nasal Cannula 2.0 03/25/17 00:00 97.5 70 19 125/70 100 Nasal Cannula 2.0 03/25/17 00:00 70 03/24/17 21:13 72 131/62 03/24/17 21:12 131/62 03/24/17 20:00 97.7 72 19 131/62 98 Nasal Cannula 2.0 03/24/17 19:19 73 03/24/17 19:10 76 16 Nasal Cannula 2.0 03/24/17 18:14 124/55 03/24/17 16:00 97.5 77 18 124/55 99 Nasal Cannula 2.0 03/24/17 16:00 2.0 03/24/17 16:00 78 03/24/17 13:41 126/66 03/24/17 12:00 97.7 80 22 126/66 100 Nasal Cannula 2.0 03/24/17 12:00 2.0 03/24/17 10:48 89 131/61 03/24/17 10:47 131/61 03/24/17 10:43 131/61 03/24/17 09:59 89 03/24/17 08:48 73 16 Nasal Cannula 2.0 03/24/17 08:00 79 17 131/61 100 Nasal Cannula 2.0 Intake and Output 03/24/17 03/25/17 19:00 07:00 Intake Total 300 ml Output Total 1100 ml 360 ml Balance -1100 ml -60 ml Intake Oral 300 ml Output Urine Total 1100 ml 360 ml # Bowel Movements 4 Current Medications Medications (Trade) Dose Ordered Sig/Connor Route PRN Reason Start Time Stop Time Status Last Admin Dose Admin Acetaminophen (Tylenol) 650 mg EVERY 4 HOURS PRN ORAL Mild Pain/Temp > 100.5 03/23/17 22:30 04/22/17 22:29 Acetaminophen/ Hydrocodone Bitart ([place] 5/325) 1 tab EVERY 6 HOURS PRN ORAL Moderate Pain (Pain Scale 4-6) 03/23/17 23:15 03/30/17 23:14 Aspirin (ASA) 81 mg DAILY ORAL 03/24/17 09:00 04/23/17 08:59 03/24/17 10:44 Atorvastatin Calcium (Lipitor) 20 mg BEDTIME ORAL 03/24/17 21:00 04/23/17 20:59 03/24/17 21:13 Bisacodyl (Dulcolax) 10 mg EVERY 72 HOURS PRN RECTAL Constipation 03/23/17 22:30 04/22/17 22:29 Carvedilol (Coreg) 6.25 mg EVERY 12 HOURS ORAL 03/24/17 09:00 04/23/17 08:59 03/24/17 21:13 Dextrose (Dextrose 50%) STAT PRN IV Hypoglycemia 03/23/17 22:30 04/22/17 22:29 Docusate Sodium (Colace) 100 mg TWICE A DAY ORAL 03/24/17 09:00 04/23/17 08:59 03/24/17 10:44 Folic Acid (Folate) 1 mg DAILY ORAL 03/24/17 09:00 04/23/17 08:59 03/24/17 10:47 Furosemide (Lasix) 40 mg EVERY 12 HOURS IV 03/24/17 21:00 04/23/17 20:59 03/24/17 21:12 Heparin Sodium (Porcine) (Heparin 5000 units/ml) 5,000 units EVERY 12 HOURS SUBQ 03/24/17 21:00 04/23/17 20:59 03/24/17 21:17 Hydralazine HCl (Apresoline) 25 mg FOUR TIMES A DAY ORAL 03/24/17 09:00 04/23/17 08:59 03/24/17 21:12 Insulin Aspart (NovoLOG) BEFORE MEALS AND HS SUBQ 03/24/17 06:30 04/23/17 06:29 03/24/17 21:23 Pantoprazole (Protonix) 40 mg DAILY ORAL 03/24/17 09:00 04/23/17 08:59 03/24/17 10:42 Sennosides (Senokot) 8.6 mg DAILY ORAL 03/24/17 09:00 04/23/17 08:59 03/24/17 10:43 Simethicone (Mylicon) 80 mg EVERY 8 HOURS PRN ORAL BLOATING 03/23/17 23:15 04/22/17 23:14 Tamsulosin HCl (Flomax) 0.4 mg BEDTIME ORAL 03/24/17 21:00 04/23/17 20:59 03/24/17 21:13 Laboratory Tests 03/25/17 04:10: White Blood Count 5.6, Red Blood Count 3.04L, Hemoglobin 9.9L, Hematocrit 32.0L , Mean Corpuscular Volume 105H, Mean Corpuscular Hemoglobin 32.7H, Mean Corpuscular Hemoglobin Concent 31.0L, Red Cell Distribution Width 15.3H, Platelet Count 116L, Mean Platelet Volume 8.5, Neutrophils (%) (Auto) 64.5, Lymphocytes (%) (Auto) 17.4L, Monocytes (%) (Auto) 8.0, Eosinophils (%) (Auto) 9.3H, Basophils (%) (Auto) 0.9, Sodium Level 142, Potassium Level 4.1, Chloride Level 107, Carbon Dioxide Level 20, Anion Gap 15, Blood Urea Nitrogen 56H, Creatinine 2.6H, Estimat Glomerular Filtration Rate 24.5, Glucose Level 112H, Calcium Level 7.9L, Total Bilirubin 0.5, Aspartate Amino Transf (AST/SGOT) 16, Alanine Aminotransferase (ALT/SGPT) 9, Alkaline Phosphatase 79, Pro-B-Type Natriuretic Peptide 83250U, Total Protein 6.2L, Albumin 2.8L, Globulin 3.4, Albumin/Globulin Ratio 0.8L, Thyroid Stimulating Hormone (TSH) 6.440H Height (Feet): 5 Height (Inches): 8.00 Weight (Pounds): 253 Objective exam, urine maru/clearing LANICONY Mar 25, 2017 07:31
[2017-03-25 08:00] VITALS: BP 111/59
--- NOTE | 2017-03-25 08:43 | Pulmonology Progress Note ---
Assessment/Plan Assessment/Plan Acute on chronic systolic and diastolic congestive heart failure. Paroxysmal atrial fibrillation with increased ventricular response. Hypertensive heart disease. Ischemic cardiomyopathy. Insulin-requiring diabetes with multiple complications Chronic kidney disease due to DM Obesity Chronic obstructive pulmonary disease. Hyperlipidemia. Hematuria on UA urology, cardiology, renal help appreciated cont to diurese feeling better renal stable Subjective Allergies: Coded Allergies: No Known Allergies (Verified , 08/07/10) Objective Last 24 Hour Vital Signs Date Time Temp Pulse Resp B/P Pulse Ox O2 Delivery O2 Flow Rate FiO2 03/25/17 08:00 98.1 69 21 111/59 100 Nasal Cannula 2.0 03/25/17 06:38 Nasal Cannula 2.0 28 03/25/17 06:38 78 16 Nasal Cannula 2.0 03/25/17 06:38 96 Nasal Cannula 2.0 03/25/17 04:00 72 03/25/17 04:00 97.5 65 19 110/53 98 Nasal Cannula 2.0 03/25/17 00:00 97.5 70 19 125/70 100 Nasal Cannula 2.0 03/25/17 00:00 70 03/24/17 21:13 72 131/62 03/24/17 21:12 131/62 03/24/17 20:00 97.7 72 19 131/62 98 Nasal Cannula 2.0 03/24/17 19:19 73 03/24/17 19:10 76 16 Nasal Cannula 2.0 03/24/17 18:14 124/55 03/24/17 16:00 97.5 77 18 124/55 99 Nasal Cannula 2.0 03/24/17 16:00 2.0 03/24/17 16:00 78 03/24/17 13:41 126/66 03/24/17 12:00 97.7 80 22 126/66 100 Nasal Cannula 2.0 03/24/17 12:00 2.0 03/24/17 10:48 89 131/61 03/24/17 10:47 131/61 03/24/17 10:43 131/61 03/24/17 09:59 89 03/24/17 08:48 73 16 Nasal Cannula 2.0 Intake and Output 03/24/17 03/25/17 19:00 07:00 Intake Total 300 ml Output Total 1100 ml 360 ml Balance -1100 ml -60 ml Intake Oral 300 ml Output Urine Total 1100 ml 360 ml # Bowel Movements 4 Objective morbidly obese General Appearance: no acute distress HEENT: atraumatic Respiratory/Chest: decreased breath sounds Cardiovascular: normal rate Abdomen: soft, non tender, no organomegaly Extremities: other - 2+ edema Lymphatic: no neck adenopathy Musculoskeletal: normal muscle bulk Laboratory Tests 03/25/17 04:10: White Blood Count 5.6, Red Blood Count 3.04L, Hemoglobin 9.9L, Hematocrit 32.0L , Mean Corpuscular Volume 105H, Mean Corpuscular Hemoglobin 32.7H, Mean Corpuscular Hemoglobin Concent 31.0L, Red Cell Distribution Width 15.3H, Platelet Count 116L, Mean Platelet Volume 8.5, Neutrophils (%) (Auto) 64.5, Lymphocytes (%) (Auto) 17.4L, Monocytes (%) (Auto) 8.0, Eosinophils (%) (Auto) 9.3H, Basophils (%) (Auto) 0.9, Sodium Level 142, Potassium Level 4.1, Chloride Level 107, Carbon Dioxide Level 20, Anion Gap 15, Blood Urea Nitrogen 56H, Creatinine 2.6H, Estimat Glomerular Filtration Rate 24.5, Glucose Level 112H, Calcium Level 7.9L, Total Bilirubin 0.5, Aspartate Amino Transf (AST/SGOT) 16, Alanine Aminotransferase (ALT/SGPT) 9, Alkaline Phosphatase 79, Pro-B-Type Natriuretic Peptide 84171N, Total Protein 6.2L, Albumin 2.8L, Globulin 3.4, Albumin/Globulin Ratio 0.8L, Thyroid Stimulating Hormone (TSH) 6.440H Current Medications Medications (Trade) Dose Ordered Sig/Connor Route PRN Reason Start Time Stop Time Status Last Admin Dose Admin Acetaminophen (Tylenol) 650 mg EVERY 4 HOURS PRN ORAL Mild Pain/Temp > 100.5 03/23/17 22:30 04/22/17 22:29 Acetaminophen/ Hydrocodone Bitart ([place] 5/325) 1 tab EVERY 6 HOURS PRN ORAL Moderate Pain (Pain Scale 4-6) 03/23/17 23:15 03/30/17 23:14 Aspirin (ASA) 81 mg DAILY ORAL 03/24/17 09:00 04/23/17 08:59 03/24/17 10:44 Atorvastatin Calcium (Lipitor) 20 mg BEDTIME ORAL 03/24/17 21:00 04/23/17 20:59 03/24/17 21:13 Bisacodyl (Dulcolax) 10 mg EVERY 72 HOURS PRN RECTAL Constipation 03/23/17 22:30 04/22/17 22:29 Carvedilol (Coreg) 6.25 mg EVERY 12 HOURS ORAL 03/24/17 09:00 04/23/17 08:59 03/24/17 21:13 Dextrose (Dextrose 50%) STAT PRN IV Hypoglycemia 03/23/17 22:30 04/22/17 22:29 Docusate Sodium (Colace) 100 mg TWICE A DAY ORAL 03/24/17 09:00 04/23/17 08:59 03/24/17 10:44 Finasteride (Proscar) 5 mg DAILY ORAL 03/25/17 09:00 04/24/17 08:59 Folic Acid (Folate) 1 mg DAILY ORAL 03/24/17 09:00 04/23/17 08:59 03/24/17 10:47 Furosemide (Lasix) 40 mg EVERY 12 HOURS IV 03/24/17 21:00 04/23/17 20:59 03/24/17 21:12 Heparin Sodium (Porcine) (Heparin 5000 units/ml) 5,000 units EVERY 12 HOURS SUBQ 03/24/17 21:00 04/23/17 20:59 03/24/17 21:17 Hydralazine HCl (Apresoline) 25 mg FOUR TIMES A DAY ORAL 03/24/17 09:00 04/23/17 08:59 03/24/17 21:12 Insulin Aspart (NovoLOG) BEFORE MEALS AND HS SUBQ 03/24/17 06:30 04/23/17 06:29 03/24/17 21:23 Pantoprazole (Protonix) 40 mg DAILY ORAL 03/24/17 09:00 04/23/17 08:59 03/24/17 10:42 Sennosides (Senokot) 8.6 mg DAILY ORAL 03/24/17 09:00 04/23/17 08:59 03/24/17 10:43 Simethicone (Mylicon) 80 mg EVERY 8 HOURS PRN ORAL BLOATING 03/23/17 23:15 04/22/17 23:14 Tamsulosin HCl (Flomax) 0.8 mg BEDTIME ORAL 03/25/17 21:00 04/24/17 20:59 VENKAT ZHANG Mar 25, 2017 08:43
[2017-03-25] MEDS: Heparin 5000 units/ml inj SUBQ SCH ×2 (09:00→20:57)
[2017-03-25] MEDS: HydrALAZINE 25mg tab ORAL SCH ×4 (09:00→20:57)
[2017-03-25] MEDS: Carvedilol 6.25mg Tab ORAL SCH ×2 (09:00→20:57)
[2017-03-25] MEDS: Aspirin Baby 81mg ORAL SCH (09:44)
[2017-03-25] MEDS: Docusate 100mg cap ORAL SCH ×2 (09:45→17:32)
--- NOTE | 2017-03-25 10:30 | Consultation ---
DATE OF CONSULTATION: 03/24/2017 CONSULTING PHYSICIAN: Emmanuel Samayoa M.D. REFERRING PHYSICIAN: Mitchel Wing M.D. REASON FOR CONSULTATION: Evaluation of hematuria. HISTORY OF PRESENT ILLNESS: This is a 71-year-old male, he was admitted to the emergency room because of shortness of breath. He has CHF exacerbation. He has a history of BPH. He has a Ramirez. Hematuria was noted. Urology evaluation was requested. His urine has been clearing. PAST MEDICAL HISTORY: Significant for above. Also diabetes, hypertension, hyperlipidemia, and CHF. PAST SURGICAL HISTORY: Unknown. CURRENT MEDICATIONS: Here in the hospital, the patient is on Lipitor, Flomax, Lasix, Coreg, folate, , hydralazine, Senokot, aspirin, NovoLog, [place], and heparin subcutaneous has been added. ALLERGIES: No known drug allergies. SOCIAL HISTORY: The patient is a resident of assisted living facility. FAMILY HISTORY: Noncontributory. PHYSICAL EXAMINATION: GENERAL: An obese male, in no acute distress. VITAL SIGNS: Temperature is 97.7, blood pressure 131/62, pulse 72, and respirations 20. HEENT: Normocephalic. NECK: Supple. ABDOMEN: Soft. GENITOURINARY: There is normal phallus. Ramirez is in place 16-Greek. Urine is slightly blood tinged. LABORATORY DATA: UA showed 40 to 60 RBCs and 2+ protein. His white count is , hemoglobin 10.0, and platelets are 137,000. His BUN is 52 and creatinine is 2.5. There are no recent cultures. DIAGNOSTIC IMAGING STUDIES: The patient had a CT scan of the abdomen and pelvis. This was done in February. At that time, there was mention of atrophy of the right kidney. There was calcification in the lower pole of left kidney. IMPRESSION: 1. Hematuria, which is improving. 2. Urinary retention. 3. Benign prostatic hypertrophy history. 4. Probable neurogenic bladder. 5. Chronic renal insufficiency. 6. Proteinuria. 7. Renal atrophy. 8. Renal calcifications. PLAN AND DISCUSSION: The patient did have hematuria presumably secondary to Ramirez, it is improving. The Ramirez catheter was irrigated. There are minimal clots. He can be monitored and catheter will be irrigated on a p.r.n. basis. He is to continue with Flomax as ordered. I will also add finasteride 5 mg daily. I would recommend to hold Plavix and at some point, he may need to have cystoscopy to complete the workup. Emmanuel Samayoa M.D. DR: ZIA JOB#: [id number] CC:
[2017-03-25 12:00] VITALS: BP 127/62
--- NOTE | 2017-03-25 12:48 | Diagnostic Imaging Report ---
Indication: SOB Technique: One view of the chest Comparison: March 23, 2017 Findings: Interstitial infiltrates are seen at the right lung base. This is a new finding. The pleural spaces and left lung remain clear. There is mild central bronchial wall thickening bilaterally. The heart is upper limits normal in size. Median sternotomy sutures are again demonstrated. Impression: Mild interstitial infiltrates or congestion at the right lung base, new since previous exam cysts Other stable findings as described
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
--- NOTE | 2017-03-25 14:37 | Nephrology Progress Note ---
Assessment/Plan Problem List: (1) CKD stage 4 secondary to hypertension (2) CHF exacerbation (3) Hypoxia Plan 03/02 bun/creat45/2.84 from ecf baseline. Continue diuretics and mazimize therapy for chf. Expect some rise in bun/creat with diuresis Subjective Constitutional: Reports: weakness HEENT: Reports: no symptoms Genitourinary: Reports: incontinence Neurologic/Psychiatric: Reports: pre-existing deficit Objective Objective Last 24 Hour Vital Signs Date Time Temp Pulse Resp B/P Pulse Ox O2 Delivery O2 Flow Rate FiO2 03/25/17 13:52 127/62 03/25/17 12:00 74 03/25/17 12:00 97.6 74 20 127/62 99 Nasal Cannula 2.0 03/25/17 09:00 111/59 03/25/17 09:00 75 111/59 03/25/17 08:00 75 03/25/17 08:00 98.1 69 21 111/59 100 Nasal Cannula 2.0 03/25/17 06:38 Nasal Cannula 2.0 28 03/25/17 06:38 78 16 Nasal Cannula 2.0 03/25/17 06:38 96 Nasal Cannula 2.0 28 03/25/17 04:00 72 03/25/17 04:00 97.5 65 19 110/53 98 Nasal Cannula 2.0 03/25/17 00:00 97.5 70 19 125/70 100 Nasal Cannula 2.0 03/25/17 00:00 70 03/24/17 21:13 72 131/62 03/24/17 21:12 131/62 03/24/17 20:00 97.7 72 19 131/62 98 Nasal Cannula 2.0 03/24/17 19:19 73 03/24/17 19:10 76 16 Nasal Cannula 2.0 03/24/17 18:14 124/55 03/24/17 16:00 97.5 77 18 124/55 99 Nasal Cannula 2.0 03/24/17 16:00 2.0 03/24/17 16:00 78 Intake and Output 03/24/17 03/25/17 19:00 07:00 Intake Total 300 ml Output Total 1100 ml 360 ml Balance -1100 ml -60 ml Intake Oral 300 ml Output Urine Total 1100 ml 360 ml # Bowel Movements 4 Laboratory Tests 8/9/17 04:10: White Blood Count 5.6, Red Blood Count 3.04L, Hemoglobin 9.9L, Hematocrit 32.0L , Mean Corpuscular Volume 105H, Mean Corpuscular Hemoglobin 32.7H, Mean Corpuscular Hemoglobin Concent 31.0L, Red Cell Distribution Width 15.3H, Platelet Count 116L, Mean Platelet Volume 8.5, Neutrophils (%) (Auto) 64.5, Lymphocytes (%) (Auto) 17.4L, Monocytes (%) (Auto) 8.0, Eosinophils (%) (Auto) 9.3H, Basophils (%) (Auto) 0.9, Sodium Level 142, Potassium Level 4.1, Chloride Level 107, Carbon Dioxide Level 20, Anion Gap 15, Blood Urea Nitrogen 56H, Creatinine 2.6H, Estimat Glomerular Filtration Rate 24.5, Glucose Level 112H, Calcium Level 7.9L, Total Bilirubin 0.5, Aspartate Amino Transf (AST/SGOT) 16, Alanine Aminotransferase (ALT/SGPT) 9, Alkaline Phosphatase 79, Pro-B-Type Natriuretic Peptide 47607R, Total Protein 6.2L, Albumin 2.8L, Globulin 3.4, Albumin/Globulin Ratio 0.8L, Thyroid Stimulating Hormone (TSH) 6.440H Height (Feet): 5 Height (Inches): 8.00 Weight (Pounds): 253 General Appearance: alert, morbidly obese EENT: normal ENT inspection Neck: normal alignment Cardiovascular: regular rhythm Respiratory/Chest: lungs clear, decreased breath sounds Abdomen: non tender, soft Extremities: trace edema 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
--- NOTE | 2017-03-25 15:49 | Cardiology Report ---
APPROVED REPORT EXAM: Two-dimensional and M-mode echocardiogram with Doppler and color Doppler. INDICATION Congestive Heart Failure M-Mode DIMENSIONS IVSd1.3 (0.7-1.1cm)Left Atrium (MM)5.5 (1.6-4.0cm) LVDd5.9 (3.5-5.6cm)Aortic Root3.5 (2.0-3.7cm) PWd1.0 (0.7-1.1cm)Aortic Cusp Exc.1.7 (1.5-2.0cm) LVDs5.8 (2.5-4.0cm) PWs1.1 cm Technically difficult study due to poor acoustic windows and patient body habitus. Study quality precludes accurate assessment of regional wall motion. Mild left ventricular enlargement. Global left ventricular hypokinesis. Left ventricular ejection fraction estimated to be 25-30 %. Mild left ventricular hypertrophy. No evidence of pericardial fat or effusion. Mild bi-atrial enlargement. Mild right ventricular enlargement. Mild focal aortic valve sclerosis with adequate cusp excursion. Mildly thickened mitral valve leaflets with normal excursion. Mild mitral annulus and aortic root calcification. Pulmonic valve not well visualized. Normal tricuspid valve structure. IVC dilated at 2.4 cm with physiologic collapse. A color flow and spectral Doppler study was performed and revealed: Mild to moderate aortic regurgitation. Mild mitral regurgitation. Mitral inflow indicat increased left atrial pressure, suggestive restrictive pattern (Grade III). Mild to moderate tricuspid regurgitation. Tricuspid systolic velocities suggests peak right ventricular systolic pressure of 43 mmHg, consistent with mild pulmonary hypertension. Mild to moderate pulmonic regurgitation present.
[2017-03-25 16:00] VITALS: BP 119/60
[2017-03-25 20:26] VITALS: BP 117/57
[2017-03-25] MEDS: Atorvastatin 20mg tab ORAL SCH (20:57)
[2017-03-25] MEDS: Tamsulosin 0.4mg cap ORAL SCH (20:57)
[2017-03-26] VITALS: BP 129/75
[2017-03-26 00:09] LABS: CREATININE 2.5 mg/dL (0.7-1.2); GLOMERULAR FILTRATION RATE 25.7 mL/min (>60)
--- NOTE | 2017-03-26 03:16 | Progress Note ---
DATE: 03/25/2017 CARDIOLOGY PROGRESS NOTE SUBJECTIVE: The patient has somewhat less shortness of breath today. Hematuria is decreasing. Urology consultation noted. A 2D echocardiogram performed today notable for ejection fraction of only 25% to 30% with technically difficult study, but evidence of four-chamber enlargement and mild to moderate mitral and tricuspid regurgitation as well as mild pulmonary hypertension, PA systolic pressure was 43 mmHg by estimate. OBJECTIVE: VITAL SIGNS: Blood pressure is 117/57, heart rate 66, respiratory rate 20, the patient is afebrile, and saturation of oxygen is 98% on two liters. NECK: Elevated jugular venous pressure. LUNGS: With diminished breath sounds. No rales. CARDIAC: Regular rhythm and rate. Normal S1, S2 with a fourth heart sound. A 1/6 systolic apical murmur. ABDOMEN: Soft. There is trace dependent edema. LABORATORY DATA: White count 5.6, hemoglobin 9.9. BUN 56, creatinine 2.6. Potassium 4.1, bicarbonate 20. Pro-natriuretic peptide is 48,000. TSH is 6.4. Albumin 2.8. IMPRESSION: 1. Acute on chronic systolic congestive heart failure. 2. Mild hypothyroidism. 3. Chronic kidney disease. 4. Pulmonary hypertension. 5. Moderate protein-calorie malnutrition. 6. Paroxysmal atrial fibrillation with increased risk for cardioembolic events. 7. Hematuria likely due to Ramirez trauma. PLAN: 1. Continue cautious diuresis. 2. Continue antianginal and anti-failure regimen. 3. Transition to oral maintenance diuretic dose over the next 24 hours for anticoagulation at this time due to bleeding risk, however, long-term if bleeding risk is resolved. 4. Cardioembolic prophylaxis will be recommended. Wellington Peter M.D. DR: YOSI JOB#: [id number] CC:
[2017-03-26 04:00] VITALS: BP 124/73
[2017-03-26 05:15] LABS: CALCIUM 7.7 mg/dL (8.6-10.2); CREATININE 2.5 mg/dL (0.7-1.2); GLOMERULAR FILTRATION RATE 25.7 mL/min (>60); POTASSIUM 4.2 mEQ/L (3.4-4.9); URIC ACID 10.7 mg/dL (3.0-7.5)
[2017-03-26] MEDS: NovoLOG Insulin Flexpen SUBQ SCH ×4 (06:26→20:35)
[2017-03-26 08:00] VITALS: BP 141/69
[2017-03-26] MEDS: Docusate 100mg cap ORAL SCH ×2 (09:00→17:24)
[2017-03-26] MEDS: Heparin 5000 units/ml inj SUBQ SCH (09:00)
[2017-03-26] MEDS: HydrALAZINE 25mg tab ORAL SCH ×4 (09:17→20:16)
[2017-03-26] MEDS: Carvedilol 6.25mg Tab ORAL SCH ×2 (09:18→20:17)
[2017-03-26] MEDS: Aspirin Baby 81mg ORAL SCH (09:18)
[2017-03-26 12:00] VITALS: BP 138/74
--- NOTE | 2017-03-26 13:25 | Urology Progress Note ---
Assessment/Plan Assessment/Plan hematuria, improving urinary retention BPH probable neurogenic bladder CRI proteinuria renal atrophy renal calcifications hand irrigate hernandez PRN hold plavix flomax proscar voiding trial later cysto later Subjective Allergies: Coded Allergies: No Known Allergies (Verified , 08/07/10) Subjective feels fair Objective Last 24 Hour Vital Signs Date Time Temp Pulse Resp B/P Pulse Ox O2 Delivery O2 Flow Rate FiO2 03/26/17 12:00 97.5 70 18 138/74 97 Nasal Cannula 2.0 03/26/17 09:18 67 141/69 03/26/17 09:17 141/69 03/26/17 08:55 Nasal Cannula 2.0 28 03/26/17 08:55 61 16 Nasal Cannula 2.0 03/26/17 08:55 99 Nasal Cannula 2.0 28 03/26/17 08:00 67 03/26/17 08:00 97.5 76 18 141/69 99 Nasal Cannula 2.0 03/26/17 04:00 98.0 69 20 124/73 99 Nasal Cannula 2.0 03/26/17 04:00 68 03/26/17 00:00 98.2 64 20 129/75 98 Nasal Cannula 2.0 03/26/17 00:00 74 03/25/17 20:57 117/57 03/25/17 20:57 66 117/57 03/25/17 20:26 98.3 66 20 117/57 98 Nasal Cannula 2.0 03/25/17 20:08 Nasal Cannula 2.0 28 03/25/17 20:08 77 16 Nasal Cannula 2.0 03/25/17 20:08 98 Nasal Cannula 2.0 28 03/25/17 20:00 63 03/25/17 17:30 119/60 03/25/17 16:00 69 03/25/17 16:00 97.5 76 20 119/60 100 Nasal Cannula 2.0 03/25/17 13:52 127/62 Intake and Output 03/25/17 03/26/17 19:00 07:00 Intake Total 320 ml 100 ml Output Total 650 ml 575 ml Balance -330 ml -475 ml Intake Oral 320 ml 100 ml Output Urine Total 650 ml 575 ml # Bowel Movements 4 2 Current Medications Medications (Trade) Dose Ordered Sig/Connor Route PRN Reason Start Time Stop Time Status Last Admin Dose Admin Acetaminophen (Tylenol) 650 mg EVERY 4 HOURS PRN ORAL Mild Pain/Temp > 100.5 03/23/17 22:30 04/22/17 22:29 Acetaminophen/ Hydrocodone Bitart ([place] 5/325) 1 tab EVERY 6 HOURS PRN ORAL Moderate Pain (Pain Scale 4-6) 03/23/17 23:15 03/30/17 23:14 Aspirin (ASA) 81 mg DAILY ORAL 03/24/17 09:00 04/23/17 08:59 03/26/17 09:18 Atorvastatin Calcium (Lipitor) 20 mg BEDTIME ORAL 03/24/17 21:00 04/23/17 20:59 03/25/17 20:57 Bisacodyl (Dulcolax) 10 mg EVERY 72 HOURS PRN RECTAL Constipation 03/23/17 22:30 04/22/17 22:29 Carvedilol (Coreg) 6.25 mg EVERY 12 HOURS ORAL 03/24/17 09:00 04/23/17 08:59 03/26/17 09:18 Dextrose (Dextrose 50%) STAT PRN IV Hypoglycemia 03/23/17 22:30 04/22/17 22:29 Docusate Sodium (Colace) 100 mg TWICE A DAY ORAL 03/24/17 09:00 04/23/17 08:59 03/25/17 09:45 Finasteride (Proscar) 5 mg DAILY ORAL 03/25/17 09:00 04/24/17 08:59 03/26/17 09:17 Folic Acid (Folate) 1 mg DAILY ORAL 03/24/17 09:00 04/23/17 08:59 03/26/17 09:17 Furosemide (Lasix) 40 mg EVERY 12 HOURS IV 03/24/17 21:00 04/23/17 20:59 03/26/17 09:17 Heparin Sodium (Porcine) (Heparin 5000 units/ml) 5,000 units EVERY 12 HOURS SUBQ 03/24/17 21:00 04/23/17 20:59 03/24/17 21:17 Hydralazine HCl (Apresoline) 25 mg FOUR TIMES A DAY ORAL 03/24/17 09:00 04/23/17 08:59 03/26/17 09:17 Insulin Aspart (NovoLOG) BEFORE MEALS AND HS SUBQ 03/24/17 06:30 04/23/17 06:29 03/26/17 12:26 Pantoprazole (Protonix) 40 mg DAILY ORAL 03/24/17 09:00 04/23/17 08:59 03/26/17 09:18 Sennosides (Senokot) 8.6 mg DAILY ORAL 03/24/17 09:00 04/23/17 08:59 03/25/17 09:44 Simethicone (Mylicon) 80 mg EVERY 8 HOURS PRN ORAL BLOATING 03/23/17 23:15 04/22/17 23:14 Tamsulosin HCl (Flomax) 0.8 mg BEDTIME ORAL 03/25/17 21:00 04/24/17 20:59 03/25/17 20:57 Laboratory Tests 03/25/17 23:05: Creatinine 2.5H, Estimat Glomerular Filtration Rate 25.7 03/26/17 03:50: Creatinine 2.5H, Estimat Glomerular Filtration Rate 25.7, Sodium Level 138, Potassium Level 4.2, Chloride Level 105, Carbon Dioxide Level 21, Anion Gap 12, Blood Urea Nitrogen 55H, Glucose Level 116H, Uric Acid 10.7H, Calcium Level 7.7L Height (Feet): 5 Height (Inches): 8.00 Weight (Pounds): 253 Objective exam, urine maru/clearing CONY GARIBAY Mar 26, 2017 13:25
[2017-03-26 16:00] VITALS: BP 130/67
--- NOTE | 2017-03-26 18:12 | Pulmonology Progress Note ---
Assessment/Plan Assessment/Plan Acute on chronic systolic and diastolic congestive heart failure. Paroxysmal atrial fibrillation with increased ventricular response. Hypertensive heart disease. Ischemic cardiomyopathy. Insulin-requiring diabetes with multiple complications Chronic kidney disease due to DM Obesity Chronic obstructive pulmonary disease. Hyperlipidemia. Hematuria on UA Echo with Mild left ventricular enlargement, LVH Global left ventricular hypokinesis. Left ventricular ejection fraction estimated to be 25-30 %. Mild pulm HTN diastolic dysfunction, gr 3 urology, cardiology, renal help appreciated cont to diurese start Xarelto OT/PT Subjective Allergies: Coded Allergies: No Known Allergies (Verified , 08/07/10) Objective Last 24 Hour Vital Signs Date Time Temp Pulse Resp B/P Pulse Ox O2 Delivery O2 Flow Rate FiO2 03/26/17 17:23 130/67 03/26/17 16:00 98.0 76 18 130/67 97 03/26/17 16:00 67 03/26/17 14:06 138/74 03/26/17 12:00 97.5 70 18 138/74 97 Nasal Cannula 2.0 03/26/17 09:18 67 141/69 03/26/17 09:17 141/69 03/26/17 08:55 Nasal Cannula 2.0 28 03/26/17 08:55 61 16 Nasal Cannula 2.0 03/26/17 08:55 99 Nasal Cannula 2.0 28 03/26/17 08:00 67 03/26/17 08:00 97.5 76 18 141/69 99 Nasal Cannula 2.0 03/26/17 04:00 98.0 69 20 124/73 99 Nasal Cannula 2.0 03/26/17 04:00 68 03/26/17 00:00 98.2 64 20 129/75 98 Nasal Cannula 2.0 03/26/17 00:00 74 03/25/17 20:57 117/57 03/25/17 20:57 66 117/57 03/25/17 20:26 98.3 66 20 117/57 98 Nasal Cannula 2.0 03/25/17 20:08 Nasal Cannula 2.0 28 03/25/17 20:08 77 16 Nasal Cannula 2.0 03/25/17 20:08 98 Nasal Cannula 2.0 28 03/25/17 20:00 63 Intake and Output 03/25/17 03/26/17 19:00 07:00 Intake Total 320 ml 100 ml Output Total 650 ml 575 ml Balance -330 ml -475 ml Intake Oral 320 ml 100 ml Output Urine Total 650 ml 575 ml # Bowel Movements 4 2 Objective morbidly obese Laboratory Tests 03/25/17 23:05: Creatinine 2.5H, Estimat Glomerular Filtration Rate 25.7 03/26/17 03:50: Creatinine 2.5H, Estimat Glomerular Filtration Rate 25.7, Sodium Level 138, Potassium Level 4.2, Chloride Level 105, Carbon Dioxide Level 21, Anion Gap 12, Blood Urea Nitrogen 55H, Glucose Level 116H, Uric Acid 10.7H, Calcium Level 7.7L Current Medications Medications (Trade) Dose Ordered Sig/Connor Route PRN Reason Start Time Stop Time Status Last Admin Dose Admin Acetaminophen (Tylenol) 650 mg EVERY 4 HOURS PRN ORAL Mild Pain/Temp > 100.5 03/23/17 22:30 04/22/17 22:29 Acetaminophen/ Hydrocodone Bitart ([place] 5/325) 1 tab EVERY 6 HOURS PRN ORAL Moderate Pain (Pain Scale 4-6) 03/23/17 23:15 03/30/17 23:14 Aspirin (ASA) 81 mg DAILY ORAL 03/24/17 09:00 04/23/17 08:59 03/26/17 09:18 Atorvastatin Calcium (Lipitor) 20 mg BEDTIME ORAL 03/24/17 21:00 04/23/17 20:59 03/25/17 20:57 Bisacodyl (Dulcolax) 10 mg EVERY 72 HOURS PRN RECTAL Constipation 03/23/17 22:30 04/22/17 22:29 Carvedilol (Coreg) 6.25 mg EVERY 12 HOURS ORAL 03/24/17 09:00 04/23/17 08:59 03/26/17 09:18 Dextrose (Dextrose 50%) STAT PRN IV Hypoglycemia 03/23/17 22:30 04/22/17 22:29 Docusate Sodium (Colace) 100 mg TWICE A DAY ORAL 03/24/17 09:00 04/23/17 08:59 03/25/17 09:45 Finasteride (Proscar) 5 mg DAILY ORAL 03/25/17 09:00 04/24/17 08:59 03/26/17 09:17 Folic Acid (Folate) 1 mg DAILY ORAL 03/24/17 09:00 04/23/17 08:59 03/26/17 09:17 Furosemide (Lasix) 40 mg EVERY 12 HOURS IV 03/24/17 21:00 04/23/17 20:59 03/26/17 09:17 Heparin Sodium (Porcine) (Heparin 5000 units/ml) 5,000 units EVERY 12 HOURS SUBQ 03/24/17 21:00 04/23/17 20:59 03/24/17 21:17 Hydralazine HCl (Apresoline) 25 mg FOUR TIMES A DAY ORAL 03/24/17 09:00 04/23/17 08:59 03/26/17 17:23 Insulin Aspart (NovoLOG) BEFORE MEALS AND HS SUBQ 03/24/17 06:30 04/23/17 06:29 03/26/17 17:09 Pantoprazole (Protonix) 40 mg DAILY ORAL 03/24/17 09:00 04/23/17 08:59 03/26/17 09:18 Sennosides (Senokot) 8.6 mg DAILY ORAL 03/24/17 09:00 04/23/17 08:59 03/25/17 09:44 Simethicone (Mylicon) 80 mg EVERY 8 HOURS PRN ORAL BLOATING 03/23/17 23:15 04/22/17 23:14 Tamsulosin HCl (Flomax) 0.8 mg BEDTIME ORAL 03/25/17 21:00 04/24/17 20:59 03/25/17 20:57 VENKAT ZHANG Mar 26, 2017 18:12
[2017-03-26 20:00] VITALS: BP 117/65
[2017-03-26] MEDS: Atorvastatin 20mg tab ORAL SCH (20:16)
[2017-03-26] MEDS: Tamsulosin 0.4mg cap ORAL SCH (20:18)
[2017-03-26] MEDS: Xarelto 15mg tab ORAL SCH (20:34)
--- NOTE | 2017-03-26 20:58 | Nephrology Progress Note ---
Assessment/Plan Problem List: (1) CKD stage 4 secondary to hypertension (2) CHF exacerbation (3) Hypoxia Plan 03/02 bun/creat45/2.84 from ecf baseline. Continue diuretics and mazimize therapy for chf. Expect some rise in bun/creat with diuresis, gfr 19, mild proteinuria. consider av fistula after chf stabilized Subjective Constitutional: Reports: weakness HEENT: Reports: no symptoms Genitourinary: Reports: incontinence Neurologic/Psychiatric: Reports: no symptoms, pre-existing deficit Objective Objective Last 24 Hour Vital Signs Date Time Temp Pulse Resp B/P Pulse Ox O2 Delivery O2 Flow Rate FiO2 03/26/17 20:17 66 117/68 03/26/17 20:16 117/68 03/26/17 20:09 Nasal Cannula 2.0 28 03/26/17 20:09 66 16 Nasal Cannula 2.0 03/26/17 20:09 98 Nasal Cannula 2.0 28 03/26/17 20:00 98.6 65 20 117/65 99 03/26/17 17:23 130/67 03/26/17 16:00 98.0 76 18 130/67 97 03/26/17 16:00 67 03/26/17 14:06 138/74 03/26/17 12:00 97.5 70 18 138/74 97 Nasal Cannula 2.0 03/26/17 09:18 67 141/69 03/26/17 09:17 141/69 03/26/17 08:55 Nasal Cannula 2.0 28 03/26/17 08:55 61 16 Nasal Cannula 2.0 03/26/17 08:55 99 Nasal Cannula 2.0 28 03/26/17 08:00 67 03/26/17 08:00 97.5 76 18 141/69 99 Nasal Cannula 2.0 03/26/17 04:00 98.0 69 20 124/73 99 Nasal Cannula 2.0 03/26/17 04:00 68 03/26/17 00:00 98.2 64 20 129/75 98 Nasal Cannula 2.0 03/26/17 00:00 74 03/25/17 20:57 117/57 03/25/17 20:57 66 117/57 Intake and Output 03/25/17 03/26/17 19:00 07:00 Intake Total 320 ml 100 ml Output Total 650 ml 575 ml Balance -330 ml -475 ml Intake Oral 320 ml 100 ml Output Urine Total 650 ml 575 ml # Bowel Movements 4 2 Laboratory Tests 03/25/17 23:05: Creatinine 2.5H, Estimat Glomerular Filtration Rate 25.7 03/26/17 03:50: Creatinine 2.5H, Estimat Glomerular Filtration Rate 25.7, Sodium Level 138, Potassium Level 4.2, Chloride Level 105, Carbon Dioxide Level 21, Anion Gap 12, Blood Urea Nitrogen 55H, Glucose Level 116H, Uric Acid 10.7H, Calcium Level 7.7L Height (Feet): 5 Height (Inches): 8.00 Weight (Pounds): 253 General Appearance: morbidly obese EENT: PERRL/EOMI Neck: normal alignment Cardiovascular: normal rate, regular rhythm Respiratory/Chest: lungs clear Abdomen: non tender, soft Extremities: trace edema 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
[2017-03-27] VITALS: BP 131/76
[2017-03-27 04:00] VITALS: BP 117/63
[2017-03-27 05:31] LABS: BASOPHILS % (AUTO) 0.7 % (0.0-2.0); EOSINOPHILS % (AUTO) 7.7 % (0.0-3.0); LYMPHOCYTES % (AUTO) 17.1 % (20.0-45.0); MEAN CORPUSCULAR HEMOGLOBIN 32.2 PG (27.0-31.0); MEAN CORPUSCULAR HGB CONC 30.8 G/DL (32.0-36.0); MEAN CORPUSCULAR VOLUME 105 FL (80-99); MEAN PLATELET VOLUME 9.4 FL (6.5-10.1); MONOCYTES % (AUTO) 7.2 % (1.0-10.0); NEUTROPHILS % (AUTO) 67.3 % (45.0-75.0); PLATELET COUNT 117 K/UL (150-450); RED BLOOD COUNT 3.14 M/UL (4.70-6.10); WHITE BLOOD COUNT 6.6 K/UL (4.8-10.8)
[2017-03-27] MEDS: NovoLOG Insulin Flexpen SUBQ SCH ×3 (05:32→16:07)
[2017-03-27 05:47] LABS: CALCIUM 7.9 mg/dL (8.6-10.2); CREATININE 2.6 mg/dL (0.7-1.2); GLOMERULAR FILTRATION RATE 24.5 mL/min (>60); POTASSIUM 4.4 mEQ/L (3.4-4.9)
--- NOTE | 2017-03-27 06:15 | Progress Note ---
DATE: 03/26/2017 CARDIOLOGY PROGRESS NOTE SUBJECTIVE: The patient has less shortness of breath. No chest pain. Monitored rhythm, atrial fibrillation. Hematuria resolved. OBJECTIVE: VITAL SIGNS: Blood pressure is 130/67, pulse rate 76, respiratory rate 18, and afebrile. NECK: Supple. Jugular venous pressure is slightly elevated. LUNGS: With diminished breath sounds. CARDIAC: Irregularly irregular. Normal S1 and S2. ABDOMEN: Soft. EXTREMITIES: Trace edema. LABORATORY DATA: Sodium is 138, potassium 4.2, bicarbonate 21, BUN 55, and creatinine 3.5. IMPRESSION: 1. Paroxysmal atrial fibrillation. 2. Acute on chronic systolic congestive heart failure. 3. Hypothyroidism. 4. Moderate protein-calorie malnutrition. 5. Chronic kidney disease, stage 4. 6. Hypoxia. PLAN: 1. Continue diuresis. 2. Begin anticoagulation for cardioembolic prophylaxis. 3. Continue anti-failure regimen for optimal clinical parameters and ventricular rate control. Mobilize. Agree with discharge planning. Wellington Peter M.D. DR: aSbino JOB#: [id number] CC:
[2017-03-27 08:00] VITALS: BP 133/78
[2017-03-27] MEDS: HydrALAZINE 25mg tab ORAL SCH ×3 (08:46→17:27)
[2017-03-27] MEDS: Aspirin Baby 81mg ORAL SCH (08:46)
[2017-03-27] MEDS: Carvedilol 6.25mg Tab ORAL SCH (08:46)
[2017-03-27] MEDS: Docusate 100mg cap ORAL SCH ×2 (08:47→16:51)
--- NOTE | 2017-03-27 09:00 | Urology Progress Note ---
Assessment/Plan Assessment/Plan hematuria, improving urinary retention BPH probable neurogenic bladder CRI proteinuria renal atrophy renal calcifications hand irrigate hernandez PRN hold plavix flomax proscar voiding trial later, once diuresis completed cysto later Subjective Allergies: Coded Allergies: No Known Allergies (Verified , 08/07/10) Subjective feels fair Objective Last 24 Hour Vital Signs Date Time Temp Pulse Resp B/P Pulse Ox O2 Delivery O2 Flow Rate FiO2 03/27/17 08:46 133/78 03/27/17 08:46 63 133/78 03/27/17 08:00 97.7 63 20 133/78 100 Nasal Cannula 2.0 03/27/17 08:00 66 03/27/17 07:23 Nasal Cannula 2.0 28 03/27/17 07:22 99 Nasal Cannula 2.0 28 03/27/17 07:21 64 18 Nasal Cannula 2.0 03/27/17 04:00 96.8 66 20 117/63 99 Nasal Cannula 2.0 03/27/17 04:00 68 03/27/17 00:00 66 03/27/17 00:00 97.9 68 20 131/76 98 Nasal Cannula 2.0 03/26/17 20:17 66 117/68 03/26/17 20:16 117/68 03/26/17 20:09 Nasal Cannula 2.0 28 03/26/17 20:09 66 16 Nasal Cannula 2.0 03/26/17 20:09 98 Nasal Cannula 2.0 28 03/26/17 20:00 64 03/26/17 20:00 98.6 65 20 117/65 99 03/26/17 17:23 130/67 03/26/17 16:00 98.0 76 18 130/67 97 03/26/17 16:00 67 03/26/17 14:06 138/74 03/26/17 12:00 97.5 70 18 138/74 97 Nasal Cannula 2.0 03/26/17 09:18 67 141/69 03/26/17 09:17 141/69 Intake and Output 03/26/17 03/27/17 19:00 07:00 Intake Total 1100 ml Output Total 700 ml 500 ml Balance 400 ml -500 ml Intake Oral 1100 ml Output Urine Total 700 ml 500 ml # Bowel Movements 5 Current Medications Medications (Trade) Dose Ordered Sig/Connor Route PRN Reason Start Time Stop Time Status Last Admin Dose Admin Acetaminophen (Tylenol) 650 mg EVERY 4 HOURS PRN ORAL Mild Pain/Temp > 100.5 03/23/17 22:30 04/22/17 22:29 Acetaminophen/ Hydrocodone Bitart ([place] 5/325) 1 tab EVERY 6 HOURS PRN ORAL Moderate Pain (Pain Scale 4-6) 03/23/17 23:15 03/30/17 23:14 Aspirin (ASA) 81 mg DAILY ORAL 03/24/17 09:00 04/23/17 08:59 03/27/17 08:46 Atorvastatin Calcium (Lipitor) 20 mg BEDTIME ORAL 03/24/17 21:00 04/23/17 20:59 03/26/17 20:16 Bisacodyl (Dulcolax) 10 mg EVERY 72 HOURS PRN RECTAL Constipation 03/23/17 22:30 04/22/17 22:29 Carvedilol (Coreg) 6.25 mg EVERY 12 HOURS ORAL 03/24/17 09:00 04/23/17 08:59 03/27/17 08:46 Dextrose (Dextrose 50%) STAT PRN IV Hypoglycemia 03/23/17 22:30 04/22/17 22:29 Docusate Sodium (Colace) 100 mg TWICE A DAY ORAL 03/24/17 09:00 04/23/17 08:59 03/25/17 09:45 Finasteride (Proscar) 5 mg DAILY ORAL 03/25/17 09:00 04/24/17 08:59 03/27/17 08:45 Folic Acid (Folate) 1 mg DAILY ORAL 03/24/17 09:00 04/23/17 08:59 03/27/17 08:46 Furosemide (Lasix) 40 mg EVERY 12 HOURS IV 03/24/17 21:00 04/23/17 20:59 03/27/17 08:45 Hydralazine HCl (Apresoline) 25 mg FOUR TIMES A DAY ORAL 03/24/17 09:00 04/23/17 08:59 03/27/17 08:46 Insulin Aspart (NovoLOG) BEFORE MEALS AND HS SUBQ 03/24/17 06:30 04/23/17 06:29 03/27/17 05:32 Pantoprazole (Protonix) 40 mg DAILY ORAL 03/24/17 09:00 04/23/17 08:59 03/27/17 08:46 Rivaroxaban (Xarelto) 15 mg QPM ORAL 03/26/17 21:00 04/25/17 20:59 03/26/17 20:34 Sennosides (Senokot) 8.6 mg DAILY ORAL 03/24/17 09:00 04/23/17 08:59 03/25/17 09:44 Simethicone (Mylicon) 80 mg EVERY 8 HOURS PRN ORAL BLOATING 03/23/17 23:15 04/22/17 23:14 Tamsulosin HCl (Flomax) 0.8 mg BEDTIME ORAL 03/25/17 21:00 04/24/17 20:59 03/26/17 20:18 Laboratory Tests 03/27/17 04:00: White Blood Count 6.6, Red Blood Count 3.14L, Hemoglobin 10.1L, Hematocrit 32.8L , Mean Corpuscular Volume 105H, Mean Corpuscular Hemoglobin 32.2H, Mean Corpuscular Hemoglobin Concent 30.8L, Red Cell Distribution Width 15.0H, Platelet Count 117L, Mean Platelet Volume 9.4, Neutrophils (%) (Auto) 67.3, Lymphocytes (%) (Auto) 17.1L, Monocytes (%) (Auto) 7.2, Eosinophils (%) (Auto) 7.7H, Basophils (%) (Auto) 0.7, Sodium Level 137, Potassium Level 4.4, Chloride Level 103, Carbon Dioxide Level 22, Anion Gap 12, Blood Urea Nitrogen 57H, Creatinine 2.6H, Estimat Glomerular Filtration Rate 24.5, Glucose Level 136H, Calcium Level 7.9L, Pro-B-Type Natriuretic Peptide 52543L Height (Feet): 5 Height (Inches): 8.00 Weight (Pounds): 254 Objective exam, urine maru/clearing DEANNESHADCONY Mar 27, 2017 09:00
[2017-03-27] MEDS ORDERED: HYDRALAZINE HCL25 M1 ORAL (09:23)
[2017-03-27] MEDS ORDERED: FINASTERIDE5 MG ORAL (09:23)
[2017-03-27] MEDS ORDERED: FUROSEMIDE40 MG ORAL (09:23)
--- NOTE | 2017-03-27 09:28 | Discharge Summary ---
Discharge Summary Hospital Course Date of Admission Mar 23, 2017 at 22:00 Date of Discharge 03/27/17 Admitting Diagnosis CHF exacerbation HPI Brandt Simmons is a 71 year old male who was admitted on Mar 23, 2017 at 22:00 for Congestive Heart Failure,Exacerbation Consultations urology, cardiology, renal Hospital Course CHF improved w diuresis hematuria, retention - urology rec irrigate Ramirez, remove when stable for voiding trial, will need cysto a flutter/fib - more bleeding w Xarelto - not safe to anticoagulate CKD stable Discharge Medications New Medications: Furosemide* (Lasix*) 40 Mg Tablet 40 MG ORAL TWICE A DAY, #60 TAB 0 Refills Finasteride (Finasteride) 5 Mg Tablet 5 MG ORAL DAILY, #30 TAB Hydralazine Hcl* (Hydralazine Hcl*) 25 Mg Tablet 25 MG ORAL FOUR TIMES A DAY, #120 TAB Continued Medications: Aspirin* (Aspirin*) 81 Mg Tab.chew 81 MG ORAL DAILY, TAB Atorvastatin (Lipitor) 80 Mg Tablet 40 MG ORAL BEDTIME, #30 TAB 0 Refills Carvedilol (Coreg) 12.5 Mg Tablet 12.5 MG ORAL Q12HR, #60 TAB Clopidogrel Bisulfate* (Plavix*) 75 Mg Tablet 75 MG ORAL DAILY, #10 TAB Hydrocodone Bit/Acetaminophen 5-325* ([place] 5-325*) 1 Each Tablet 1 TAB ORAL Q6H PRN for For Pain, #8 TAB Insulin Glargine (Lantus) 100 Unit/1 Ml Insuln.pen 60 SUBQ BEDTIME, #1 EA 0 Refills Levothyroxine Sodium* (Levothyroxine Sodium*) 50 Mcg Tablet 100 MCG ORAL DAILY Take in the morning on an empty stomach, at least 30 minutes before food. Losartan Potassium* (Cozaar*) 50 Mg Tablet 100 MG ORAL DAILY, #30 TAB Mirtazapine* (Mirtazapine*) 15 Mg Tablet 30 MG ORAL BEDTIME, TAB Omeprazole (Omeprazole) 20 Mg Tablet.dr 20 MG ORAL DAILY, TAB Quetiapine Fumarate* (Seroquel*) 25 Mg Tablet 25 MG PO QHS Tamsulosin Hcl (Tamsulosin Hcl*) 0.4 Mg Cap.er.24h 0.4 MG ORAL BEDTIME, CAP Discontinued Medications: Atorvastatin Calcium* (Atorvastatin Calcium*) 20 Mg Tablet 20 MG ORAL BEDTIME, TAB Discharge Condition Upon Discharge: improving Discharge Disposition Patient was discharged to snf Discharge Diagnoses: (1) Hematuria (2) Urinary retention (3) CHF exacerbation (4) CKD stage 4 secondary to hypertension (5) HTN (hypertension) (6) Anemia (7) Large prostate VENKAT ZHANG Mar 27, 2017 09:28
[2017-03-27 11:43] VITALS: BP 124/64
[2017-03-27 16:00] VITALS: BP 145/69
[2017-03-27] MEDS: Xarelto 15mg tab ORAL SCH (16:06)
--- NOTE | 2017-03-27 17:03 | Nephrology Progress Note ---
Assessment/Plan Problem List: (1) CKD stage 4 secondary to hypertension (2) CHF exacerbation (3) Hypoxia Plan 03/02 bun/creat45/2.84 from ecf baseline. Continue diuretics and mazimize therapy for chf. Expect some rise in bun/creat with diuresis, gfr 19, mild proteinuria. consider av fistula after chf stabilized Subjective Constitutional: Reports: weakness HEENT: Reports: no symptoms Genitourinary: Reports: incontinence Neurologic/Psychiatric: Reports: no symptoms Objective Objective Last 24 Hour Vital Signs Date Time Temp Pulse Resp B/P Pulse Ox O2 Delivery O2 Flow Rate FiO2 03/27/17 16:00 98.6 68 21 145/69 98 Room Air 03/27/17 16:00 71 03/27/17 12:51 124/64 03/27/17 12:00 69 03/27/17 11:43 98.8 65 20 124/64 98 Room Air 03/27/17 08:46 133/78 03/27/17 08:46 63 133/78 03/27/17 08:00 97.7 63 20 133/78 100 Nasal Cannula 2.0 03/27/17 08:00 66 03/27/17 07:23 Nasal Cannula 2.0 28 03/27/17 07:22 99 Nasal Cannula 2.0 28 03/27/17 07:21 64 18 Nasal Cannula 2.0 03/27/17 04:00 96.8 66 20 117/63 99 Nasal Cannula 2.0 03/27/17 04:00 68 03/27/17 00:00 66 03/27/17 00:00 97.9 68 20 131/76 98 Nasal Cannula 2.0 03/26/17 20:17 66 117/68 03/26/17 20:16 117/68 03/26/17 20:09 Nasal Cannula 2.0 28 03/26/17 20:09 66 16 Nasal Cannula 2.0 03/26/17 20:09 98 Nasal Cannula 2.0 28 03/26/17 20:00 64 03/26/17 20:00 98.6 65 20 117/65 99 03/26/17 17:23 130/67 Intake and Output 03/26/17 03/27/17 19:00 07:00 Intake Total 1100 ml Output Total 700 ml 500 ml Balance 400 ml -500 ml Intake Oral 1100 ml Output Urine Total 700 ml 500 ml # Bowel Movements 5 Laboratory Tests 03/27/17 04:00: White Blood Count 6.6, Red Blood Count 3.14L, Hemoglobin 10.1L, Hematocrit 32.8L , Mean Corpuscular Volume 105H, Mean Corpuscular Hemoglobin 32.2H, Mean Corpuscular Hemoglobin Concent 30.8L, Red Cell Distribution Width 15.0H, Platelet Count 117L, Mean Platelet Volume 9.4, Neutrophils (%) (Auto) 67.3, Lymphocytes (%) (Auto) 17.1L, Monocytes (%) (Auto) 7.2, Eosinophils (%) (Auto) 7.7H, Basophils (%) (Auto) 0.7, Sodium Level 137, Potassium Level 4.4, Chloride Level 103, Carbon Dioxide Level 22, Anion Gap 12, Blood Urea Nitrogen 57H, Creatinine 2.6H, Estimat Glomerular Filtration Rate 24.5, Glucose Level 136H, Calcium Level 7.9L, Pro-B-Type Natriuretic Peptide 52439T Height (Feet): 5 Height (Inches): 8.00 Weight (Pounds): 254 General Appearance: no apparent distress, morbidly obese EENT: normal ENT inspection Neck: normal alignment, supple Cardiovascular: regular rhythm Respiratory/Chest: decreased breath sounds Abdomen: non tender, soft Extremities: trace edema 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
[2017-03-27 17:27] VITALS: BP 145/69
--- NOTE | 2017-03-28 02:30 | Progress Note ---
DATE: 03/27/2017 CARDIOLOGY PROGRESS NOTE: SUBJECTIVE: The patient has no chest pain or shortness of breath. Monitored rhythm sinus with paroxysms of atrial fibrillation. The patient had more urinary bleeding and rivaroxaban was discontinued. He continues to have a Ramirez catheter in place. OBJECTIVE: VITAL SIGNS: Blood pressure is 145/69, pulse 68, respiratory rate 21, and afebrile. NECK: Jugular venous pressure is normal. LUNGS: With diminished breath sounds. CARDIAC: Regular rhythm and rate. Normal S1 and S2. A 1/6 apical murmur. ABDOMEN: Soft. EXTREMITIES: Trace dependent edema. IMPRESSION: 1. Ischemic cardiomyopathy. 2. Hypertensive heart disease. 3. Acute on chronic systolic congestive heart failure. 4. Hematuria. 5. Urinary retention. 6. Probable prostatic hypertrophy. 7. Chronic kidney disease. 8. Hypothyroidism. PLAN: 1. Not safe for anticoagulation at this time. 2. Continue Ramirez with outpatient and voiding trial to follow. 3. Maintenance dose diuretic. 4. Continue current anti-failure regimen. 5. Thyroid replacement. 6. Expect elevated natriuretic peptide acid with chronic kidney disease. 7. Outpatient care at this time is appropriate but will need close monitoring of volume status and chemistry panel. Wellington Peter M.D. : Sabino JOB#: [id number] CC:
== END 2017-03-27 19:25 | DRG 291 ==
LOC: ENRESERVDT → ENRESERVTM → ENRESERV → EDBD 20:03 → EMR 20:30 → 2W 22:00 → EDBEDREQ 03-24 05:55 → 2W 03-26 21:19
PROC: 5A09357 Assistance with Respiratory Ventilation, Less than 24 Consecutive Hours, Continuous Positive Airway Pressure (ICD-10-PCS; principal; 2017-03-23)
DX: I13.0 Hypertensive heart and chronic kidney disease with heart failure and stage 1 through stage 4 chronic kidney disease, or unspecified chronic kidney disease (principal); I50.43 Acute on chronic combined systolic (congestive) and diastolic (congestive) heart failure; E44.0 Moderate protein-calorie malnutrition; N18.4 Chronic kidney disease, stage 4 (severe); E11.22 Type 2 diabetes mellitus with diabetic chronic kidney disease; I27.2 Other secondary pulmonary hypertension; E11.51 Type 2 diabetes mellitus with diabetic peripheral angiopathy without gangrene; I48.92 Unspecified atrial flutter; I48.0 Paroxysmal atrial fibrillation; E66.01 Morbid (severe) obesity due to excess calories; I08.1 Rheumatic disorders of both mitral and tricuspid valves; J44.9 Chronic obstructive pulmonary disease, unspecified; N31.9 Neuromuscular dysfunction of bladder, unspecified; E03.9 Hypothyroidism, unspecified; I25.10 Atherosclerotic heart disease of native coronary artery without angina pectoris; E78.5 Hyperlipidemia, unspecified; R31.9 Hematuria, unspecified; Z79.4 Long term (current) use of insulin; N40.1 Benign prostatic hyperplasia with lower urinary tract symptoms; R33.8 Other retention of urine; Z87.891 Personal history of nicotine dependence; Z86.73 Personal history of transient ischemic attack (TIA), and cerebral infarction without residual deficits; D64.9 Anemia, unspecified; I48.91 Unspecified atrial fibrillation
CPT/HCPCS: 36415; 71010; 76775; 80048; 80053; 81001; 81050; 82575; 82962; 83880; 84156; 84443; 84484; 84550; 85025; 85379; 85610; 85730; 93005; 93306; 94664; 94760; J1815

== ENCOUNTER 2017-03-28 07:30 | Emergency (ER) | payer MEDICAID, MEDICARE ==
[~2017-03-28] VITALS: Ht 172.7 cm; Wt 113.4 kg
[~2017-03-28 07:30] MED LIST changes: +FINASTERIDE5 MG ORAL; +HYDRALAZINE HCL25 M1 ORAL
--- NOTE | 2017-03-28 07:43 | Emergency Room Report ---
History of Present Illness General Chief Complaint: Generalized Weakness Source: EMS Present Illness HPI 71YOM BIBEMS from [facility] for "weakness." [facility] did not submit any paperwork. patient "not sure why I'm here." However c/o nausea/vomiting and "abd pain." Was DCed from [facility] [place] yesterday. PMD Dr Wing not sure why patient sent back. Had asked [facility] to DC to SNF, not [facility] PMHx: Hypertensive heart disease, history of malignant range blood pressure, coronary atherosclerosis, chronic kidney disease, insulin-requiring diabetes mellitus, diabetic nephropathy, diabetic neuropathy, diabetic angiopathy, paroxysmal atrial fibrillation, history of congestive heart failure, hyperlipidemia and hypothyroidism. 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 ?diverticulitis Allergies: Coded Allergies: No Known Allergies (Verified , 08/07/10) Patient History Past Medical History: other - see hpi Past Surgical History: none Pertinent Family History: none Social History: Denies: alcohol use, drug use, smoking Immunizations: UTD Reviewed Nursing Documentation: PMH: Agreed, PSxH: Agreed Nursing Documentation-PMH Hx Hypertension: Yes Hx Pacemaker: No Hx Asthma: No Hx COPD: Yes Hx Diabetes: Yes Hx Cancer: No Hx Gastrointestinal Problems: Yes - BPH Hx Dialysis: No Hx Cerebrovascular Accident: Yes Hx Seizures: No Review of Systems All Other Systems: negative except mentioned in HPI Physical Exam Vital Signs Date Time Temp Pulse Resp B/P Pulse Ox O2 Delivery O2 Flow Rate FiO2 03/28/17 07:28 97.9 70 18 98 Room Air Sp02 EP Interpretation: reviewed, normal General Appearance: normal inspection, well appearing, no apparent distress, alert, GCS 15, non-toxic Head: normocephalic, atraumatic Eyes: bilateral eye EOMI, bilateral eye PERRL ENT: normal ENT inspection, hearing grossly normal, normal voice Neck: normal inspection, full range of motion, supple, no bony tend Respiratory: normal inspection, lungs clear, normal breath sounds, no respiratory distress, no retraction, no wheezing Cardiovascular #1: regular rate, rhythm, no edema Gastrointestinal: normal inspection, normal bowel sounds, non tender, soft, no guarding, distended Genitourinary: no CVA tenderness Musculoskeletal: normal inspection, back normal, normal range of motion, Rachele' s Sign negative Neurologic: normal inspection, alert, oriented x3, responsive, receipt and report clerk III-XII nml as tested, speech normal Psychiatric: normal inspection, judgement/insight normal, mood/affect normal Skin: normal inspection, normal color, no rash Medical Decision Making Diagnostic Impression: Primary Impression: Abdominal pain Qualified Codes: R10.84 - Generalized abdominal pain Additional Impressions: Episode of generalized weakness UTI (urinary tract infection) Qualified Codes: T83.511D - Infection and inflammatory reaction due to indwelling urethral catheter, subsequent encounter; N39.0 - Urinary tract infection, site not specified Urinary retention ER Course Labs unchanged from yesterday. H&H stable. No leuks UA with WBCs, likely from indwelling hernandez. Advised to NOT tx by PMD given no leuks or fever CTAP unchanged from a few days ago - limited by lack of PO contrast - patient unable to tolerate - and IV contrast, existing CKD Spoke with HCP [facility] and PMD - will DC to SNF as was supposed to happen yesterday from [facility] [place] EKG Diagnostic Results Rate: other - paced Rhythm: NSR ST Segments: no acute changes ASA given to the pt in ED: No Last Vital Signs Date Time Temp Pulse Resp B/P Pulse Ox O2 Delivery O2 Flow Rate FiO2 03/28/17 07:28 97.9 70 18 98 Room Air Status: improved Disposition: XFER SNF Condition: Stable VENKAT PETERSON M.D. Mar 28, 2017 07:43
[2017-03-28 07:44] VITALS: BP 157/97
[2017-03-28] MEDS ORDERED: Morphine Sulfate 2mg/ml Inj IVP ONE (08:15)
[2017-03-28 08:34] LABS: BASOPHILS % (AUTO) 0.7 % (0.0-2.0); EOSINOPHILS % (AUTO) 6.4 % (0.0-3.0); LYMPHOCYTES % (AUTO) 12.9 % (20.0-45.0); MEAN CORPUSCULAR HEMOGLOBIN 31.5 PG (27.0-31.0); MEAN CORPUSCULAR HGB CONC 30.5 G/DL (32.0-36.0); MEAN CORPUSCULAR VOLUME 103 FL (80-99); MEAN PLATELET VOLUME 9.1 FL (6.5-10.1); NEUTROPHILS % (AUTO) 73.1 % (45.0-75.0); PLATELET COUNT 135 K/UL (150-450); RED BLOOD COUNT 3.44 M/UL (4.70-6.10); RED CELL DISTRIBUTION WIDTH 15.2 % (11.6-14.8); WHITE BLOOD COUNT 6.2 K/UL (4.8-10.8)
[2017-03-28 08:56] LABS: APPEARANCE,URINE SLIGHTLY CLOUDY; KETONES,URINE NEGATIVE (NEGATIVE); LEUKOCYTE ESTERASE ,URINE 2+ (NEGATIVE); NITRITE,URINE NEGATIVE (NEGATIVE); PH,URINE 5 (4.5-8.0); PROTEIN,URINE 2+ (NEGATIVE); UROBILINOGEN,URINE NORMAL MG/DL (0.0-1.0)
[2017-03-28 09:02] LABS: TROPONIN I < 0.30 ng/mL (<=0.30)
[2017-03-28 09:05] LABS: CALCIUM 8.4 mg/dL (8.6-10.2); CREATININE 2.5 mg/dL (0.7-1.2); GLOMERULAR FILTRATION RATE 25.7 mL/min (>60); POTASSIUM 4.9 mEQ/L (3.4-4.9); TOTAL PROTEIN 6.5 g/dL (6.6-8.7)
[2017-03-28 09:30] LABS: BACTERIA,URINE FEW /HPF; HYALINE CASTS, URINE 0-2 /LPF; RBC,URINE TNTC /HPF (0 - 0); SQUAMOUS EPITHELIAL CELL,UR OCCASIONAL /LPF (NONE/OCC); WBC,URINE 15-20 /HPF (0 - 0)
--- NOTE | 2017-03-28 09:31 | Diagnostic Imaging Report ---
Indication: Abdominal pain Technique: Continuous helical transaxial imaging of the abdomen and pelvis was obtained from the lung bases to the pubic symphysis. No intravenous contrast was administered. Coronal 2-D reformats were also obtained. Total Dose length Product (DLP): [address] Dose Index Volume (CTDIvol): 20 mGy Comparison: 02/21/17 Findings: There are bilateral pleural effusions with associated posterior basal atelectasis. Aorta is moderately calcified. There is mild ascites and evidence of subcutaneous soft tissue stranding diffusely involving the chest and abdominal wall. The gallbladder is noted. There is some artifact limiting evaluation. This may be body habitus related. There is no nephrolithiasis the fully seen. There is no hydronephrosis is seen. The kidneys are atrophic. There is a partially rim calcified cystic focus in the lateral left kidney. This may be an old calcified subcapsular hematoma. Extensive diverticula demonstrated throughout the colon. The appendix is identified and appears normal though visualization is somewhat limited. Small intimal calcification and thickening of an old lower abdominal dissection noted. This was seen previously also. There is no aneurysm involving the aorta. The iliac arteries are mildly ectatic. There is a Ramirez catheter present. The bladder wall appears mildly thickened. Prostate is prominent. There is no free air or evidence of bowel obstruction. There is narrowing of intervertebral discs and accompanying endplate osteophyte formation. Hypertrophied facet joints also demonstrated. Impression: Mild ascites, slightly more than on the last exam. Mild bilateral pleural effusions increased compared to last study with associated posterior basal atelectasis. Anasarca. Atherosclerotic disease Limited study due to artifacts related to body habitus and lack of IV or oral contrast Normal appendix Diverticulosis of the colon Moderate fecal retention Ramirez catheter in good position. Thickening of the wall of the urinary bladder may indicate cystitis. Please correlate clinically. Prostate hypertrophy Degenerative spondylosis The CT scanner at [facility] is accredited by the [employer] and the scans are performed using dose optimization techniques as appropriate to a performed exam including Automatic Exposure control.
[2017-03-28] MEDS ORDERED: cefTRIAXone 1 GM in NS 55 ML IVPB ONE (09:45)
[2017-03-28 10:04] VITALS: BP 144/72
[2017-03-28 13:08] VITALS: BP 130/80
[2017-03-28 13:43] VITALS: BP 144/72
--- NOTE | 2017-03-30 08:31 | Cardiology Report ---
APPROVED REPORT EKG Measurement Heart [id number] Atrial flutter with variable AV block Right bundle branch block Septal infarct, age undetermined Abnormal ECG
== END 2017-03-28 14:00 ==
LOC: EDBD 07:30 → EMR 07:35
DX: R10.84 Generalized abdominal pain (principal); R53.1 Weakness; T83.511D Infection and inflammatory reaction due to indwelling urethral catheter, subsequent encounter; R33.9 Retention of urine, unspecified; N39.0 Urinary tract infection, site not specified; X58.XXXD Exposure to other specified factors, subsequent encounter; E11.40 Type 2 diabetes mellitus with diabetic neuropathy, unspecified; Z79.4 Long term (current) use of insulin; I13.0 Hypertensive heart and chronic kidney disease with heart failure and stage 1 through stage 4 chronic kidney disease, or unspecified chronic kidney disease; N18.9 Chronic kidney disease, unspecified; I50.9 Heart failure, unspecified; J44.9 Chronic obstructive pulmonary disease, unspecified; Z86.73 Personal history of transient ischemic attack (TIA), and cerebral infarction without residual deficits; J98.11 Atelectasis; J90 Pleural effusion, not elsewhere classified; R60.1 Generalized edema; I70.90 Unspecified atherosclerosis; K57.90 Diverticulosis of intestine, part unspecified, without perforation or abscess without bleeding; N40.0 Benign prostatic hyperplasia without lower urinary tract symptoms; M47.9 Spondylosis, unspecified
CPT/HCPCS: 36415; 74176; 80053; 81003; 82962; 83690; 84484; 85025; 87086; 93005; 96374; 99283; J2270; J2405